=== PATIENT | male | born 1950 | race African-American/Black ===

== ENCOUNTER 2017-03-07 19:47 | Inpatient (IN) | payer BC, OTHER ==
[~2017-03-07] VITALS: Ht 185.4 cm; Wt 78.5 kg
[~2017-03-07 19:47] MED LIST: BACTRIM-DS1 EA PO; COMBIVENT2 PUFFS INH; HYDROCHLOROTHIA50 MG PO; LITHIUM CARBON300 MG PO; ONDANSETRON ODT4 MG ORAL; STRIBILD TABLE1 EACH PO; SYMBICORT 1601 PUFFS INH; ZESTRIL20 MG ORAL
[2017-03-07 21:03] LABS: EOSINOPHILS % (AUTO) 3.8 % (0.0-3.0); LYMPHOCYTES % (AUTO) 35.7 % (20.0-45.0); MEAN CORPUSCULAR HEMOGLOBIN 28.4 PG (27.0-31.0); MEAN CORPUSCULAR HGB CONC 31.5 G/DL (32.0-36.0); MEAN CORPUSCULAR VOLUME 90 FL (80-99); MEAN PLATELET VOLUME 8.7 FL (6.5-10.1); MONOCYTES % (AUTO) 8.9 % (1.0-10.0); NEUTROPHILS % (AUTO) 49.7 % (45.0-75.0); PLATELET COUNT 248 K/UL (150-450); RED BLOOD COUNT 4.78 M/UL (4.70-6.10); WHITE BLOOD COUNT 5.9 K/UL (4.8-10.8)
[2017-03-07 21:18] LABS: AMMONIA 24 umol/L (11-32)
[2017-03-07 21:26] VITALS: BP 110/72
[2017-03-07 21:31] LABS: ACETAMINOPHEN < 2 MCG/ML (10-30); ALCOHOL < 3 mg/dL
[2017-03-07 21:52] LABS: ANION GAP 6 mmol/L (5-15); CALCIUM 7.8 MG/DL (8.5-10.1); CARBON DIOXIDE 23 MMOL/L (21-32); CHLORIDE 108 MMOL/L (98-107); CREATININE 0.8 MG/DL (0.55-1.30); GLOMERULAR FILTRATION RATE > 60 mL/min (>60); POTASSIUM 4.2 MMOL/L (3.5-5.1); SODIUM 137 MMOL/L (136-145)
[2017-03-07 22:06] LABS: ALANINE AMINOTRANSFERASE 24 U/L (12-78); ALBUMIN/GLOBULIN RATIO 0.8 (1.0-2.7); ASPARTATE AMINO TRANSFERASE 44 U/L (15-37); CKMB 4.7 NG/ML (0.0-3.6); TOTAL PROTEIN 5.6 G/DL (6.4-8.2)
[2017-03-07] MEDS ORDERED: Albuterol/Ipratropium 3ml neb HHN PRN ×2 (22:15→22:45)
[2017-03-07] MEDS ORDERED: Mylanta II UD 30ml ORAL PRN (22:45)
[2017-03-07] MEDS ORDERED: Promethazine/Codeine 5ml UD ORAL PRN (22:45)
[2017-03-07] MEDS ORDERED: LORazepam Inj 2mg/ml 1ml IV PRN (22:45)
[2017-03-07] MEDS ORDERED: Miralax 17gm pkt ORAL PRN (22:45)
[2017-03-07] MEDS ORDERED: Nitroglycerin Subl 0.4mg tab SL PRN (22:45)
[2017-03-07] MEDS ORDERED: Morphine Sulfate 2mg/ml Inj IVP PRN (22:45)
--- NOTE | 2017-03-07 22:45 | Emergency Room Report ---
History of Present Illness General Chief Complaint: General Complaint Source: Patient Present Illness HPI 66-year-old presents to ED for evaluation. Patient states that his roommate asked him to come in. Roomate concerned that patient may have had a stroke. Patient states the last 3 days he is having increased slurred speech. Denies any facial droop. Denies any headache. Denies any chest pain shortness of breath. Patient does note psychiatric history he does take multiple medications. Denies alcohol or drug use. No other aggravating relieving factors. Denies any other associated symptoms Allergies: Coded Allergies: No Known Allergies (Unverified , 06/07/12) Patient History Past Medical History: COPD, psych hx, HIV Pertinent Family History: none Social History: Denies: smoking, alcohol use, drug use Immunizations: UTD Reviewed Nursing Documentation: PMH: Agreed, PSxH: Agreed Nursing Documentation-PMH Hx Hypertension: Yes - hiv History Of Psychiatric Problem: Yes - BIPOLAR Review of Systems All Other Systems: negative except mentioned in HPI Physical Exam Vital Signs Date Time Temp Pulse Resp B/P (MAP) Pulse Ox O2 Delivery O2 Flow Rate FiO2 03/07/17 19:57 98.1 69 18 119/65 100 Room Air Sp02 EP Interpretation: reviewed, normal General Appearance: no apparent distress, alert, GCS 15, non-toxic Head: normocephalic, atraumatic Eyes: bilateral eye normal inspection, bilateral eye PERRL ENT: hearing grossly normal, normal pharynx, no angioedema, normal voice Neck: full range of motion, supple/symm/no masses Respiratory: chest non-tender, lungs clear, normal breath sounds, speaking full sentences Cardiovascular #1: regular rate, rhythm, no edema Cardiovascular #2: 2+ carotid (R), 2+ carotid (L), 2+ radial (R), 2+ radial (L) , 2+ dorsalis pedis (R), 2+ dorsalis pedis (L) Gastrointestinal: normal bowel sounds, non tender, soft, non-distended, no guarding, no rebound Rectal: deferred Genitourinary: normal inspection, no CVA tenderness Musculoskeletal: back normal, gait/station normal, normal range of motion, non- tender Neurologic: alert, oriented x3, responsive, broadcast designer III-XII nml as tested, motor strength/tone normal, sensory intact, other - slurred speech Psychiatric: judgement/insight normal, memory normal, mood/affect normal, no suicidal/homicidal ideation Reflexes: 3+ bicep (R), 3+ bicep (L), 3+ tricep (R), 3+ tricep (L), 3+ knee (R) , 3+ knee (L) Skin: normal color, no rash, warm/dry, well hydrated Lymphatic: no adenopathy Medical Decision Making Diagnostic Impression: Primary Impression: Encephalopathy ER Course Hospital Course 66-year-old no presents ED with increased slurred speech x3 days Differential diagnoses include: OH/unstable angina, arrythmia, dehydration, CVA/ TIA Clinical course Patient placed on stretcher. on cardiac rehabilitation specialist. After initial history and physical I ordered labs, EKG, IVFs, CT Brain labs reviewed- no leukocytosis, hemoglobin/hematocrit ok, electrolytes okay, troponins negative, Utox +THC, lithium level is sendout EKG- NSR, no acute ischemic changes interpreted by me CT brain-unremarkable I spoke to PMD Dr. Sequeira; patient is not hypertension or other risk factors for stroke. However he has multiple reasons for toxic encephalopathy including substance abuse. Patient also takes lithium He agrees to admission. requests we admits to Dr. Rose Case discussed with Dr. Rose and he agreed to accept the patient to his service for further care and support I. I feel this is a highly complex case requiring extensive working including EKG/Rhythm strip, Xray/CT/US, Blood/urine lab work, repeat exams while in ED, and administration of strong opiates/narcotics for pain control, admission to hospital or close patient follow up. Diagnosis - encepalopathy admitted to floor in serious condition Labs Test 03/07/17 20:45 03/07/17 20:55 03/07/17 21:30 White Blood Count 5.9 K/UL (4.8-10.8) Red Blood Count 4.78 M/UL (4.70-6.10) Hemoglobin 13.6 G/DL (14.2-18.0) Hematocrit 43.0 % (42.0-52.0) Mean Corpuscular Volume 90 FL (80-99) Mean Corpuscular Hemoglobin 28.4 PG (27.0-31.0) Mean Corpuscular Hemoglobin Concent 31.5 G/DL (32.0-36.0) Red Cell Distribution Width 14.0 % (11.6-14.8) Platelet Count 248 K/UL (150-450) Mean Platelet Volume 8.7 FL (6.5-10.1) Neutrophils (%) (Auto) 49.7 % (45.0-75.0) Lymphocytes (%) (Auto) 35.7 % (20.0-45.0) Monocytes (%) (Auto) 8.9 % (1.0-10.0) Eosinophils (%) (Auto) 3.8 % (0.0-3.0) Basophils (%) (Auto) 2.0 % (0.0-2.0) Ammonia 24 umol/L (11-32) Troponin I 0.000 ng/mL (0.000-0.056) Salicylates Level 3.3 ug/mL (2.8-20) Acetaminophen Level < 2 MCG/ML (10-30) Serum Alcohol < 3 mg/dL Urine Opiates Screen Negative (NEGATIVE) Urine Barbiturates Screen Negative (NEGATIVE) Phencyclidine (PCP) Screen Negative (NEGATIVE) Urine Amphetamines Screen Negative (NEGATIVE) Urine Benzodiazepines Screen Negative (NEGATIVE) Urine Cocaine Screen Negative (NEGATIVE) Urine Marijuana (THC) Screen Positive (NEGATIVE) Sodium Level 137 MMOL/L (136-145) Potassium Level 4.2 MMOL/L (3.5-5.1) Chloride Level 108 MMOL/L (98-107) Carbon Dioxide Level 23 MMOL/L (21-32) Anion Gap 6 mmol/L (5-15) Blood Urea Nitrogen 16 mg/dL (7-18) Creatinine 0.8 MG/DL (0.55-1.30) Estimat Glomerular Filtration Rate > 60 mL/min (>60) Glucose Level 75 MG/DL (74-106) Calcium Level 7.8 MG/DL (8.5-10.1) Total Bilirubin 0.3 MG/DL (0.2-1.0) Aspartate Amino Transf (AST/SGOT) 44 U/L (15-37) Alanine Aminotransferase (ALT/SGPT) 24 U/L (12-78) Alkaline Phosphatase 63 U/L (46-116) Total Creatine Kinase 427 U/L (26-308) Creatine Kinase MB 4.7 NG/ML (0.0-3.6) Creatine Kinase MB Relative Index 1.1 Total Protein 5.6 G/DL (6.4-8.2) Albumin 2.5 G/DL (3.4-5.0) Globulin 3.1 g/dL Albumin/Globulin Ratio 0.8 (1.0-2.7) EKG Diagnostic Results Rate: normal Rhythm: NSR ST Segments: no acute changes ASA given to the pt in ED: No Rhythm Strip Diag. Results EP Interpretation: yes Rhythm: NSR, no PVC's, no ectopy CT/MRI/US Diagnostic Results CT/MRI/US Diagnostic Results : Imaging Test Ordered: CT Head Impression no acute process Last Vital Signs Date Time Temp Pulse Resp B/P (MAP) Pulse Ox O2 Delivery O2 Flow Rate FiO2 03/07/17 21:26 98.1 20 110/72 100 Room Air 03/07/17 19:57 69 Status: unchanged Disposition: ADMITTED INPATIENT Condition: Serious Referrals: OSVLADO MAKI (PCP) KATELIN CEBALLOS M.D. Mar 07, 2017 22:45
[2017-03-07 22:48] VITALS: BP 116/102
[2017-03-07 23:25] VITALS: BP 129/96
[2017-03-08] MEDS ORDERED: D5 1/2NS 1,000 ML IV SCH (01:00)
[2017-03-08 04:00] VITALS: BP 119/73
[2017-03-08 05:44] LABS: EOSINOPHILS % (AUTO) 4.8 % (0.0-3.0); LYMPHOCYTES % (AUTO) 39.6 % (20.0-45.0); MEAN CORPUSCULAR HEMOGLOBIN 29.6 PG (27.0-31.0); MEAN CORPUSCULAR HGB CONC 32.7 G/DL (32.0-36.0); MEAN CORPUSCULAR VOLUME 90 FL (80-99); MEAN PLATELET VOLUME 8.2 FL (6.5-10.1); MONOCYTES % (AUTO) 11.5 % (1.0-10.0); NEUTROPHILS % (AUTO) 43.1 % (45.0-75.0); PLATELET COUNT 218 K/UL (150-450); RED BLOOD COUNT 4.22 M/UL (4.70-6.10); RED CELL DISTRIBUTION WIDTH 13.7 % (11.6-14.8); WHITE BLOOD COUNT 5.6 K/UL (4.8-10.8)
[2017-03-08 05:54] LABS: INR 0.9 (0.9-1.1); PROTHROMBIN TIME 9.7 SEC (9.30-11.50)
[2017-03-08 06:10] LABS: ALANINE AMINOTRANSFERASE 33 U/L (12-78); ALBUMIN/GLOBULIN RATIO 0.8 (1.0-2.7); ANION GAP 6 mmol/L (5-15); ASPARTATE AMINO TRANSFERASE 29 U/L (15-37); CARBON DIOXIDE 26 MMOL/L (21-32); CHLORIDE 102 MMOL/L (98-107); CHOLESTEROL 158 MG/DL (< 200); CHOLESTEROL/HDL RATIO 3.1 (3.3-4.4); CREATININE 1.2 MG/DL (0.55-1.30); GLOMERULAR FILTRATION RATE > 60 mL/min (>60); POTASSIUM 3.7 MMOL/L (3.5-5.1); SODIUM 134 MMOL/L (136-145); THYROID STIMULATING HORMONE 2.655 uiU/mL (0.358-3.740)
[2017-03-08 06:53] LABS: AMMONIA 34 umol/L (11-32)
[2017-03-08 08:00] VITALS: BP 122/74
[2017-03-08] MEDS: BuPROPion XL 150mg tab ORAL SCH (08:27)
[2017-03-08] MEDS: Lisinopril 20mg tab ORAL SCH (08:28)
[2017-03-08] MEDS: Heparin 5000 units/ml inj SUBQ SCH ×2 (08:31→21:03)
[2017-03-08] MEDS ORDERED: Lisinopril 20mg tab ORAL SCH (09:00)
--- NOTE | 2017-03-08 09:53 | Diagnostic Imaging Report ---
Indication: Altered mental status Technique: Continuous helical CT scanning of the head was performed without intravenous contrast material. Axial and coronal 5 mm sections were generated. Radiation dose was minimized using automated exposure control Dose: Total Dose Length Product - DLP [address] Dose Index - CTDIvol(s) 70.38 mGy. Comparison: none Findings: The ventricular system is normal in size and configuration. There is no shift of midline structures. No abnormal extra-axial fluid collections are noted. There is no evidence of intracerebral bleeding. No other abnormal high or low density areas are noted within the brain. Intact calvarium. Visualized orbits and sinuses are unremarkable Impression: Normal CT scan of the head without contrast material. This agrees with the preliminary interpretation provided overnight by [facility] teleradiology service. The CT scanner at [facility] is accredited by the [employer] and the scans are performed using protocols designed to limit radiation exposure to as low as reasonably achievable to attain images of sufficient resolution adequate for diagnostic evaluation.
[2017-03-08 12:00] VITALS: BP 120/78
--- NOTE | 2017-03-08 12:10 | Neurology Progress Note ---
Objective Physical Exam Last Vital Signs Date Time Temp Pulse Resp B/P (MAP) Pulse Ox O2 Delivery O2 Flow Rate FiO2 03/08/17 08:28 122/76 03/08/17 08:00 98.1 76 19 96 03/08/17 07:05 Room Air 21 Laboratory Tests Test 03/07/17 20:45 03/07/17 20:55 03/07/17 21:30 03/08/17 05:17 White Blood Count 5.9 K/UL (4.8-10.8) 5.6 K/UL (4.8-10.8) Red Blood Count 4.78 M/UL (4.70-6.10) 4.22 M/UL (4.70-6.10) L Hemoglobin 13.6 G/DL (14.2-18.0) L 12.5 G/DL (14.2-18.0) L Hematocrit 43.0 % (42.0-52.0) 38.1 % (42.0-52.0) L Mean Corpuscular Volume 90 FL (80-99) 90 FL (80-99) Mean Corpuscular Hemoglobin 28.4 PG (27.0-31.0) 29.6 PG (27.0-31.0) Mean Corpuscular Hemoglobin Concent 31.5 G/DL (32.0-36.0) L 32.7 G/DL (32.0-36.0) Red Cell Distribution Width 14.0 % (11.6-14.8) 13.7 % (11.6-14.8) Platelet Count 248 K/UL (150-450) 218 K/UL (150-450) Mean Platelet Volume 8.7 FL (6.5-10.1) 8.2 FL (6.5-10.1) Neutrophils (%) (Auto) 49.7 % (45.0-75.0) 43.1 % (45.0-75.0) L Lymphocytes (%) (Auto) 35.7 % (20.0-45.0) 39.6 % (20.0-45.0) Monocytes (%) (Auto) 8.9 % (1.0-10.0) 11.5 % (1.0-10.0) H Eosinophils (%) (Auto) 3.8 % (0.0-3.0) H 4.8 % (0.0-3.0) H Basophils (%) (Auto) 2.0 % (0.0-2.0) 1.0 % (0.0-2.0) Ammonia 24 umol/L (11-32) 34 umol/L (11-32) H Troponin I 0.000 ng/mL (0.000-0.056) Salicylates Level 3.3 ug/mL (2.8-20) Acetaminophen Level < 2 MCG/ML (10-30) L [place] Level 0.84 MMOL/L (1.00-1.20) Serum Alcohol < 3 mg/dL Urine Opiates Screen Negative (NEGATIVE) Urine Barbiturates Screen Negative (NEGATIVE) Phencyclidine (PCP) Screen Negative (NEGATIVE) Urine Amphetamines Screen Negative (NEGATIVE) Urine Benzodiazepines Screen Negative (NEGATIVE) Urine Cocaine Screen Negative (NEGATIVE) Urine Marijuana (THC) Screen Positive (NEGATIVE) H Sodium Level 137 MMOL/L (136-145) 134 MMOL/L (136-145) L Potassium Level 4.2 MMOL/L (3.5-5.1) 3.7 MMOL/L (3.5-5.1) Chloride Level 108 MMOL/L (98-107) H 102 MMOL/L (98-107) Carbon Dioxide Level 23 MMOL/L (21-32) 26 MMOL/L (21-32) Anion Gap 6 mmol/L (5-15) 6 mmol/L (5-15) Blood Urea Nitrogen 16 mg/dL (7-18) 18 mg/dL (7-18) Creatinine 0.8 MG/DL (0.55-1.30) 1.2 MG/DL (0.55-1.30) Estimat Glomerular Filtration Rate > 60 mL/min (>60) > 60 mL/min (>60) Glucose Level 75 MG/DL (74-106) 114 MG/DL (74-106) H Calcium Level 7.8 MG/DL (8.5-10.1) L 10.0 MG/DL (8.5-10.1) # Total Bilirubin 0.3 MG/DL (0.2-1.0) 0.2 MG/DL (0.2-1.0) Aspartate Amino Transf (AST/SGOT) 44 U/L (15-37) H 29 U/L (15-37) Alanine Aminotransferase (ALT/SGPT) 24 U/L (12-78) 33 U/L (12-78) Alkaline Phosphatase 63 U/L (46-116) 91 U/L (46-116) Total Creatine Kinase 427 U/L (26-308) H Creatine Kinase MB 4.7 NG/ML (0.0-3.6) H Creatine Kinase MB Relative Index 1.1 Total Protein 5.6 G/DL (6.4-8.2) L 7.0 G/DL (6.4-8.2) Albumin 2.5 G/DL (3.4-5.0) L 3.2 G/DL (3.4-5.0) L Globulin 3.1 g/dL 3.8 g/dL Albumin/Globulin Ratio 0.8 (1.0-2.7) L 0.8 (1.0-2.7) L Prothrombin Time 9.7 SEC (9.30-11.50) Prothromb Time International Ratio 0.9 (0.9-1.1) Activated Partial Thromboplast Time 30 SEC (23-33) Triglycerides Level 173 MG/DL (30-150) H Cholesterol Level 158 MG/DL (< 200) LDL Cholesterol 91 mg/dL (<100) HDL Cholesterol 51 MG/DL (40-60) Cholesterol/HDL Ratio 3.1 (3.3-4.4) L Thyroid Stimulating Hormone (TSH) 2.655 uiU/mL (0.358-3.740) Impression/Recommendations Recommendations # [id number] MANINDER MURILLO Mar 08, 2017 12:10
[2017-03-08] MEDS: Depakote 500mg tab ORAL SCH ×2 (13:09→21:00)
[2017-03-08] MEDS: D5 1/2NS 1,000 ML IV SCH (13:10)
--- NOTE | 2017-03-08 13:17 | Consultation ---
History of Present Illness General Date patient seen: Mar 08, 2017 Time patient seen: 12:30 Chief Complaint: General Complaint Referring physician: dr Rose Reason for Consultation: inpatient management Present Illness HPI 66-year-old male with psychiatric history, HIV status presented to ED for evaluation. Patient stated that his roommate asked him to come in. Roommate was concerned that patient may have had a stroke. Patient reported for the last 3 days increased slurred speech. No facial droop. Denied headache. Denied chest pain ,shortness of breath. takes multiple psych medications. Denied alcohol or drug use. Workup in ED revealed stable VS, labortaort work CT brain revealed no acute ischemic changes troponin negative ammonia WNL lithium level not detected urine tox screen + marijuana patient was admitted for further workup Allergies: Coded Allergies: No Known Allergies (Unverified , 06/07/12) Medication History Scheduled Albuterol/Ipratropium (Combivent), 2 PUFFS INH QID, (Reported) Budesonide/Formoterol Fumarate (Symbicort 160-4.5 Mcg Inhaler), 1 PUFFS INH BID, (Reported) Elvitegr/Cobicist/Emtric/Tenof (Stribild Tablet), 1 EACH PO DAILY, (Reported) Hydrochlorothiazide* (Hydrochlorothiazide*), 50 MG PO DAILY, (Reported) Lisinopril* (Zestril*), 40 MG ORAL DAILY, (Reported) [place] Carbonate* ([place]*), 300 MG PO Q8H, (Reported) Ondansetron Odt* (Zofran Odt*), 4 MG ORAL EVERY 8 HOURS Trimethoprim/Sulfamethoxazole (Bactrim Ds Tablet), 1 TAB PO DAILY, (Reported) Patient History History Provided By: Patient Healthcare decision maker Resuscitation status Advanced Directive on File No Past Medical/Surgical History Past Medical/Surgical History: (1) ETOH abuse (2) Psychiatric disorder (3) COPD (chronic obstructive pulmonary disease) (4) HIV disease (5) Hyperlipidemia (6) HTN (hypertension) Review of Systems Respiratory: Reports: other - COPD Psychiatric: Reports: other - psych disorder Hematologic/Lymphatic: Reports: other - HIV Physical Exam General Appearance: WD/WN, no apparent distress, alert Lines, tubes and drains: peripheral HEENT: normocephalic, atraumatic, anicteric, mucous membranes moist Neck: non-tender, supple Respiratory/Chest: chest wall non-tender, lungs clear, no respiratory distress , no accessory muscle use Cardiovascular/Chest: normal rate, regular rhythm, no JVD Abdomen: normal bowel sounds, non tender, soft Extremities: normal range of motion, non-tender, no calf tenderness Skin Exam: normal pigmentation, warm/dry Neurologic: sole painter II-XII grossly normal, alert, responsive Musculoskeletal: normal muscle bulk Last 24 Hour Vital Signs Date Time Temp Pulse Resp B/P (MAP) Pulse Ox O2 Delivery O2 Flow Rate FiO2 03/08/17 12:00 98.2 71 19 120/78 100 03/08/17 08:28 122/76 03/08/17 08:00 98.1 76 19 122/74 96 03/08/17 07:05 96 18 Room Air 21 03/08/17 04:00 97.4 74 18 119/73 99 Room Air 03/07/17 23:25 98.4 78 19 129/96 100 03/07/17 23:15 75 20 116/102 100 Room Air 03/07/17 22:48 20 116/102 100 Room Air 03/07/17 21:26 98.1 20 110/72 100 Room Air 03/07/17 19:57 98.1 69 18 119/65 100 Room Air Intake and Output 03/08/17 03/09/17 19:00 07:00 Intake Total 240 ml Balance 240 ml Intake Oral 240 ml # Voids 1 Laboratory Tests Test 03/07/17 20:45 03/07/17 20:55 03/07/17 21:30 03/08/17 05:17 White Blood Count 5.9 K/UL (4.8-10.8) 5.6 K/UL (4.8-10.8) Red Blood Count 4.78 M/UL (4.70-6.10) 4.22 M/UL (4.70-6.10) L Hemoglobin 13.6 G/DL (14.2-18.0) L 12.5 G/DL (14.2-18.0) L Hematocrit 43.0 % (42.0-52.0) 38.1 % (42.0-52.0) L Mean Corpuscular Volume 90 FL (80-99) 90 FL (80-99) Mean Corpuscular Hemoglobin 28.4 PG (27.0-31.0) 29.6 PG (27.0-31.0) Mean Corpuscular Hemoglobin Concent 31.5 G/DL (32.0-36.0) L 32.7 G/DL (32.0-36.0) Red Cell Distribution Width 14.0 % (11.6-14.8) 13.7 % (11.6-14.8) Platelet Count 248 K/UL (150-450) 218 K/UL (150-450) Mean Platelet Volume 8.7 FL (6.5-10.1) 8.2 FL (6.5-10.1) Neutrophils (%) (Auto) 49.7 % (45.0-75.0) 43.1 % (45.0-75.0) L Lymphocytes (%) (Auto) 35.7 % (20.0-45.0) 39.6 % (20.0-45.0) Monocytes (%) (Auto) 8.9 % (1.0-10.0) 11.5 % (1.0-10.0) H Eosinophils (%) (Auto) 3.8 % (0.0-3.0) H 4.8 % (0.0-3.0) H Basophils (%) (Auto) 2.0 % (0.0-2.0) 1.0 % (0.0-2.0) Ammonia 24 umol/L (11-32) 34 umol/L (11-32) H Troponin I 0.000 ng/mL (0.000-0.056) Salicylates Level 3.3 ug/mL (2.8-20) Acetaminophen Level < 2 MCG/ML (10-30) L [place] Level 0.84 MMOL/L (1.00-1.20) Serum Alcohol < 3 mg/dL Urine Opiates Screen Negative (NEGATIVE) Urine Barbiturates Screen Negative (NEGATIVE) Phencyclidine (PCP) Screen Negative (NEGATIVE) Urine Amphetamines Screen Negative (NEGATIVE) Urine Benzodiazepines Screen Negative (NEGATIVE) Urine Cocaine Screen Negative (NEGATIVE) Urine Marijuana (THC) Screen Positive (NEGATIVE) H Sodium Level 137 MMOL/L (136-145) 134 MMOL/L (136-145) L Potassium Level 4.2 MMOL/L (3.5-5.1) 3.7 MMOL/L (3.5-5.1) Chloride Level 108 MMOL/L (98-107) H 102 MMOL/L (98-107) Carbon Dioxide Level 23 MMOL/L (21-32) 26 MMOL/L (21-32) Anion Gap 6 mmol/L (5-15) 6 mmol/L (5-15) Blood Urea Nitrogen 16 mg/dL (7-18) 18 mg/dL (7-18) Creatinine 0.8 MG/DL (0.55-1.30) 1.2 MG/DL (0.55-1.30) Estimat Glomerular Filtration Rate > 60 mL/min (>60) > 60 mL/min (>60) Glucose Level 75 MG/DL (74-106) 114 MG/DL (74-106) H Calcium Level 7.8 MG/DL (8.5-10.1) L 10.0 MG/DL (8.5-10.1) # Total Bilirubin 0.3 MG/DL (0.2-1.0) 0.2 MG/DL (0.2-1.0) Aspartate Amino Transf (AST/SGOT) 44 U/L (15-37) H 29 U/L (15-37) Alanine Aminotransferase (ALT/SGPT) 24 U/L (12-78) 33 U/L (12-78) Alkaline Phosphatase 63 U/L (46-116) 91 U/L (46-116) Total Creatine Kinase 427 U/L (26-308) H Creatine Kinase MB 4.7 NG/ML (0.0-3.6) H Creatine Kinase MB Relative Index 1.1 Total Protein 5.6 G/DL (6.4-8.2) L 7.0 G/DL (6.4-8.2) Albumin 2.5 G/DL (3.4-5.0) L 3.2 G/DL (3.4-5.0) L Globulin 3.1 g/dL 3.8 g/dL Albumin/Globulin Ratio 0.8 (1.0-2.7) L 0.8 (1.0-2.7) L Prothrombin Time 9.7 SEC (9.30-11.50) Prothromb Time International Ratio 0.9 (0.9-1.1) Activated Partial Thromboplast Time 30 SEC (23-33) Triglycerides Level 173 MG/DL (30-150) H Cholesterol Level 158 MG/DL (< 200) LDL Cholesterol 91 mg/dL (<100) HDL Cholesterol 51 MG/DL (40-60) Cholesterol/HDL Ratio 3.1 (3.3-4.4) L Thyroid Stimulating Hormone (TSH) 2.655 uiU/mL (0.358-3.740) Height (Feet): 6 Height (Inches): 1.00 Weight (Pounds): 173 Medications Current Medications Medications (Trade) Dose Ordered Sig/Michael Route PRN Reason Start Time Stop Time Status Last Admin Dose Admin Acetaminophen (Tylenol) 650 mg Q4H PRN ORAL fever 03/07/17 22:45 04/06/17 22:44 Al Hydroxide/Mg Hydroxide (Mylanta II) 30 ml Q6H PRN ORAL dyspepsia 03/07/17 22:45 04/06/17 22:44 Albuterol/ Ipratropium (Albuterol/ Ipratropium) 3 ml Q4H PRN HHN Shortness of Breath 03/07/17 22:45 03/12/17 22:44 Bupropion HCl (Wellbutrin XL) 150 mg DAILY ORAL 03/08/17 09:00 04/07/17 08:59 03/08/17 08:27 Clonidine HCl (Catapres) 0.1 mg Q4H PRN ORAL For High Blood Pressure 03/07/17 22:45 04/06/17 22:44 Dextrose (Dextrose 50%) STAT PRN IV Hypoglycemia 03/07/17 22:45 04/06/17 22:44 Dextrose/Sodium Chloride 1,000 ml @ 50 mls/hr Q20H IV 03/08/17 13:15 04/07/17 00:59 03/08/17 13:10 Divalproex Sodium (Depakote) 500 mg EVERY 12 HOURS ORAL 03/08/17 12:30 04/07/17 12:29 03/08/17 13:09 Folic Acid 1 mg/ Magnesium Sulfate 2000 mg/ Multivitamins 10 ml/Sodium Chloride 1,014.2 ml @ 125 mls/ hr Q24H IV 03/08/17 14:00 04/07/17 13:59 Heparin Sodium (Porcine) (Heparin 5000 units/ml) 5,000 units EVERY 12 HOURS SUBQ 03/08/17 09:00 04/07/17 08:59 03/08/17 08:31 Hydrochlorothiazide (Hydrodiuril) 50 mg DAILY ORAL 03/08/17 09:00 04/07/17 08:59 03/08/17 08:27 Lisinopril (Prinivil) 40 mg DAILY ORAL 03/08/17 09:00 04/07/17 08:59 03/08/17 08:28 [place] Carbonate ([place] Carbonate) 300 mg Q8HR ORAL 03/08/17 14:00 04/07/17 13:59 Lorazepam (Ativan 2mg/ml 1ml) 0.5 mg Q4H PRN IV For Anxiety 03/07/17 22:45 03/14/17 22:44 Morphine Sulfate (Morphine Sulfate) 1 mg Q4H PRN IVP For Pain 7-10 03/07/17 22:45 03/14/17 22:44 Nitroglycerin (Ntg) 0.4 mg Q5M X 3 DOSES PRN SL Prn Chest Pain 03/07/17 22:45 04/06/17 22:44 Ondansetron HCl (Zofran) 4 mg Q6H PRN IVP Nausea & Vomiting 03/07/17 22:45 04/06/17 22:44 Patient Own Medication (Patient's Own Med) 1 ea DAILY ORAL 03/08/17 09:00 04/07/17 08:59 UNV Polyethylene Glycol (Miralax) 17 gm HSPRN PRN ORAL Constipation 03/07/17 22:45 04/06/17 22:44 Promethazine HCl/ Codeine (Phenergan with Codeine) 5 ml Q4H PRN ORAL For Cough 03/07/17 22:45 04/06/17 22:44 Temazepam (Restoril) 15 mg HSPRN PRN ORAL Insomnia 03/07/17 22:45 03/14/17 22:44 Thiamine HCl 100 mg/Dextrose 56 ml @ 112 mls/hr Q24H IVPB 03/08/17 14:00 04/07/17 13:59 Assessment/Plan Assessment/Plan ASSESSMENT acute toxic metabolic encephalopathy-resolved HIV status ( with preserved CD4 counts) COPD psych disorder , likely bipolar HTN Hyperlipidemia marijuana user PLAN OF CARE MS floor gentle IV hydration neuro eval appreciated CT head negative for any acute IC pathology MRI brain negative Carotid Duplex Venous Duplex tox screen + marijuana O2 HHN prn lithium level not detectable BP management with current regimen and optimize as needed DVT prophylaxis Pain management Bowel regimen PT/OT/ST per his PMD patient with well controlled HIV disease with preserved CD4 count patient smoked marijuana and later developed symptoms, that stopped case discussed and evaluated by supervising physician Cosmo Riddle),Evon HAHN Mar 08, 2017 13:17
--- NOTE | 2017-03-08 13:42 | Consultation ---
Consult Note Consult Note Pt seen and examined. Pt followed by me for well-controlled HIV infection and preserved CD4 cells. He had transient episode of confusion and slurred speech last night on way to a movie. He had smoked some marijuana earlier. He feels well at this time and wants to go home. ROS: denies fever, DASILVA, cough, chest pain, SOB, abdominal pain, nausea, vomiting , diarrhea, dysuria. PE: WNWD male NAD. Alert, oriented x 4 HEENT: nc/at Lungs: clear Cor: reg Abd: soft Ext no c/c/e Neuro: no focal deficits. MS seems intact. Labs Test 03/07/17 20:45 03/07/17 20:55 03/07/17 21:30 03/08/17 05:17 White Blood Count 5.9 K/UL (4.8-10.8) 5.6 K/UL (4.8-10.8) Red Blood Count 4.78 M/UL (4.70-6.10) 4.22 M/UL (4.70-6.10) Hemoglobin 13.6 G/DL (14.2-18.0) 12.5 G/DL (14.2-18.0) Hematocrit 43.0 % (42.0-52.0) 38.1 % (42.0-52.0) Mean Corpuscular Volume 90 FL (80-99) 90 FL (80-99) Mean Corpuscular Hemoglobin 28.4 PG (27.0-31.0) 29.6 PG (27.0-31.0) Mean Corpuscular Hemoglobin Concent 31.5 G/DL (32.0-36.0) 32.7 G/DL (32.0-36.0) Red Cell Distribution Width 14.0 % (11.6-14.8) 13.7 % (11.6-14.8) Platelet Count 248 K/UL (150-450) 218 K/UL (150-450) Mean Platelet Volume 8.7 FL (6.5-10.1) 8.2 FL (6.5-10.1) Neutrophils (%) (Auto) 49.7 % (45.0-75.0) 43.1 % (45.0-75.0) Lymphocytes (%) (Auto) 35.7 % (20.0-45.0) 39.6 % (20.0-45.0) Monocytes (%) (Auto) 8.9 % (1.0-10.0) 11.5 % (1.0-10.0) Eosinophils (%) (Auto) 3.8 % (0.0-3.0) 4.8 % (0.0-3.0) Basophils (%) (Auto) 2.0 % (0.0-2.0) 1.0 % (0.0-2.0) Ammonia 24 umol/L (11-32) 34 umol/L (11-32) Troponin I 0.000 ng/mL (0.000-0.056) Salicylates Level 3.3 ug/mL (2.8-20) Acetaminophen Level < 2 MCG/ML (10-30) [place] Level 0.84 MMOL/L (1.00-1.20) Serum Alcohol < 3 mg/dL Urine Opiates Screen Negative (NEGATIVE) Urine Barbiturates Screen Negative (NEGATIVE) Phencyclidine (PCP) Screen Negative (NEGATIVE) Urine Amphetamines Screen Negative (NEGATIVE) Urine Benzodiazepines Screen Negative (NEGATIVE) Urine Cocaine Screen Negative (NEGATIVE) Urine Marijuana (THC) Screen Positive (NEGATIVE) Sodium Level 137 MMOL/L (136-145) 134 MMOL/L (136-145) Potassium Level 4.2 MMOL/L (3.5-5.1) 3.7 MMOL/L (3.5-5.1) Chloride Level 108 MMOL/L (98-107) 102 MMOL/L (98-107) Carbon Dioxide Level 23 MMOL/L (21-32) 26 MMOL/L (21-32) Anion Gap 6 mmol/L (5-15) 6 mmol/L (5-15) Blood Urea Nitrogen 16 mg/dL (7-18) 18 mg/dL (7-18) Creatinine 0.8 MG/DL (0.55-1.30) 1.2 MG/DL (0.55-1.30) Estimat Glomerular Filtration Rate > 60 mL/min (>60) > 60 mL/min (>60) Glucose Level 75 MG/DL (74-106) 114 MG/DL (74-106) Calcium Level 7.8 MG/DL (8.5-10.1) 10.0 MG/DL (8.5-10.1) Total Bilirubin 0.3 MG/DL (0.2-1.0) 0.2 MG/DL (0.2-1.0) Aspartate Amino Transf (AST/SGOT) 44 U/L (15-37) 29 U/L (15-37) Alanine Aminotransferase (ALT/SGPT) 24 U/L (12-78) 33 U/L (12-78) Alkaline Phosphatase 63 U/L (46-116) 91 U/L (46-116) Total Creatine Kinase 427 U/L (26-308) Creatine Kinase MB 4.7 NG/ML (0.0-3.6) Creatine Kinase MB Relative Index 1.1 Total Protein 5.6 G/DL (6.4-8.2) 7.0 G/DL (6.4-8.2) Albumin 2.5 G/DL (3.4-5.0) 3.2 G/DL (3.4-5.0) Globulin 3.1 g/dL 3.8 g/dL Albumin/Globulin Ratio 0.8 (1.0-2.7) 0.8 (1.0-2.7) Prothrombin Time 9.7 SEC (9.30-11.50) Prothromb Time International Ratio 0.9 (0.9-1.1) Activated Partial Thromboplast Time 30 SEC (23-33) Triglycerides Level 173 MG/DL (30-150) Cholesterol Level 158 MG/DL (< 200) LDL Cholesterol 91 mg/dL (<100) HDL Cholesterol 51 MG/DL (40-60) Cholesterol/HDL Ratio 3.1 (3.3-4.4) Thyroid Stimulating Hormone (TSH) 2.655 uiU/mL (0.358-3.740) Assessment/Plan A: transient altered mental status, ? due to marijuana vs new [employer] SUPER[employer] event. Latter seems unlikely with normal CT scan. HIV-well controlled COPD/bronchospasm hypertension hyperlipidemia hx Rec: pt can continue his Gen[employer] from home. Await neuro eval. Dr. Rose and Fernanda's help much appreciated. OSVALDO MAKI Mar 08, 2017 13:42
[2017-03-08] MEDS: Thiamine 100mg IVPB (Q24H) IVPB SCH ×2 (15:05)
[2017-03-08] MEDS: Folic Acid 1 MG, Magnesium Sulfate 2,000 MG, Multivitamin - 12 Injection 10 ML in NS w/... IV SCH (15:12)
[2017-03-08 16:00] VITALS: BP 123/77
--- NOTE | 2017-03-08 16:04 | Diagnostic Imaging Report ---
Indication: Slurred speech and altered mental status Technique: sagittal T1 fast spin echo, axial T1 FLAIR, axial T2 FLAIR, axial T2 FS PROPELLER, axial T2* GRE, axial diffusion weighted images. ADC and exponential ADC maps generated Comparison: Brain CT 03/07/2017 Findings: No abnormal areas of restricted diffusion to suggest acute infarction. No acute hemorrhage or edema. No mass effect nor midline shift. Normal size, for age, ventricles and extra axial CSF spaces. Visualized orbits and sinuses are unremarkable. Vascular flow voids are preserved Impression: Negative
[2017-03-08] MEDS: Dolutegravir Sodium 50mg tab ORAL SCH (16:35)
--- NOTE | 2017-03-08 19:08 | History & Physical ---
History and Physical History & Physicial Dictated for Int Med-Dr Rose no. [id number]. ALIZA MORSE Mar 08, 2017 19:08
[2017-03-08 20:00] VITALS: BP 120/74
--- NOTE | 2017-03-08 21:15 | History and Physical Report ---
DATE OF ADMISSION: 03/07/2017 CHIEF COMPLAINT: The patient is a 66-year-old male, presents with chief complaint of confusion, slurred speech and dizziness for one week. HISTORY OF PRESENT ILLNESS: Began one week prior to admission. The patient began to experience confusion. The patient was unable to recall certain events or names. The patient also has some slurred speech. The patient was dizzy. The patient states he was on steady on his feet. The room did not been spin. The patient's partner became concerned Saturday evening, 03/07/2017 while they were on the way to the movie. The patient's symptoms had gotten worse. The patient presented to [place] emergency room. The patient was admitted for confusion, slurred speech and vertigo to rule out acute cerebrovascular accident versus transient ischemic attack. PAST MEDICAL HISTORY: Significant for 1. HIV, which was diagnosed in 1983 followed as an outpatient by Dr. Jorge Delgadillo. 2. Hypertension. 3. Bipolar depression. 4. Chronic obstructive pulmonary disease. PAST SURGICAL HISTORY: Significant for 1. 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 2. Sacral prosthesis placed at age 18. 3. Exploratory laparotomy for abdominal abscess. CURRENT MEDICATIONS: 1. Combivent two puffs p.o. q.i.d. p.r.n. 2. Symbicort 160/4.5 one puff p.o. twice daily. 3. Stribild one tablet p.o. daily. 4. Hydrochlorothiazide 50 mg p.o. daily. 5. Lisinopril 40 mg p.o. daily. 6. Bennett 300 mg p.o. q.8 h. 7. Zofran 4 mg p.o. q.8 h. 8. Bactrim double-strength one tablet p.o. daily. ALLERGIES: No known drug allergies. 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 The patient admits to tobacco use one pack per day. The patient admits to alcohol use of two drinks daily. REVIEW OF SYSTEMS: CONSTITUTIONAL: The patient denies weight loss or weight gain. The patient denies fevers or chills. HEENT: The patient denies ear or throat pain. The patient denies headache. CARDIOVASCULAR: The patient denies palpitations or chest pain. CHEST: The patient denies wheeze or shortness of breath. ABDOMEN: The patient denies nausea, vomiting, diarrhea, or constipation. GENITOURINARY: The patient denies dysuria or increased frequency of urination. NEUROMUSCULAR: The patient complains of confusion, slurred speech and dizziness as above. The patient denies seizures or generalized weakness. PHYSICAL EXAMINATION: GENERAL: The patient is well developed and well nourished, thin-appearing male, in no apparent distress. VITAL SIGNS: Temperature 97.4 degrees, respirations 18, pulse 74, and blood pressure 119/73. HEENT: Eyes, pupils equal responsive to light and accommodation. Extraocular movements are intact. NECK: Supple without lymphadenopathy. CHEST: Lungs are clear to auscultation bilaterally without wheezes or rales. CARDIOVASCULAR: Regular rate. S1 and S2 normal without murmurs, rubs, or gallops. ABDOMEN: Soft, nontender, and nondistended. Positive bowel sounds. No evidence of hepatosplenomegaly. Currently, no rebound or guarding noted. EXTREMITIES: Negative for clubbing, cyanosis, or edema. RECTAL/GENITAL: Refused. NEUROLOGIC: Cranial nerves II through XII are grossly intact without focal deficits. Motor strength is 5/5 bilaterally. Deep tendon reflexes are 2+ plantar. LABORATORY AND DIAGNOSTIC DATA: WBC 5.9, hemoglobin 13.6, hematocrit 43.0, and platelets 248,000. Sodium 137, potassium 4.2, chloride 108, CO2 23, BUN 16, creatinine 0.8 and glucose 75. Troponin 0.0. Liver function tests within normal limits. A CT scan of the brain was reported as normal. ASSESSMENT: This is a 66-year-old male 1. Altered mental status. 2. Slurred speech. 3. Vertigo. 4. Human immunodeficiency virus. 5. Hypertension. 6. Chronic obstructive pulmonary disease. 7. Bipolar depression. TREATMENT: 1. Altered mental status/slurred speech/vertigo. A Neurology consultation has been obtained with Dr. Michael. An MRI of the brain is pending. We will follow recommendations of Dr. Michael. 2. Human immunodeficiency virus. The patient is followed as an outpatient by Dr. Jorge Delgadillo. Continue Stribild as above. 3. Hypertension. Continue lisinopril and hydrochlorothiazide as above. 4. Chronic obstructive pulmonary disease. Continue Symbicort and Combivent as above. 5. Bipolar depression. Continue lithium as above. Rayshawn Lim M.D. DR: SILVIA JOB#: [id number] CC:
--- NOTE | 2017-03-08 21:45 | Consultation ---
DATE OF CONSULTATION: 03/08/2017 NEUROLOGICAL CONSULTATION CONSULTING PHYSICIAN: Sandip Michael M.D. REQUESTING PHYSICIAN: Anthony Rose M.D. HISTORY OF PRESENT ILLNESS: This is a 66-year-old gentleman, seen in neurological consultation to evaluate new onset of intermittent episodes of . The patient is brought to the emergency room after his roommate asked him to come in being afraid that he might have a stroke. He reported that for the last three days, he was having increased slurriness of speech, but no other associated symptomatology. The patient now clarifies stating that approximately week ago, he started to develop at least three or four amnestic episodes during which he had slurred speech as he was told by his friends who were witnessing. During episode, he is able to speak and move around. At times, he feels "weird," but mostly he has no recollection of event, which may last up to one hour. During episode, he was described having bilateral hand shaking. There was no urine or bowel incontinence. No tongue biting. The patient suggested that he might not even know if he had such episodes, if that would be not observed by someone else. The patient recalled that few months ago he started to develop intermittent tremors of his upper extremities. He was seen by outside neurologist. His EEG and some radiological studies were obtained. He is unaware of results, but obviously no treatment was recommended. During current admission, his vital signs were stable. He is afebrile. He had a CT scan of the brain done that was negative. Laboratory work included unremarkable CBC studies with mild anemia, hemoglobin 12.5 and hematocrit 38.1. Normal coagulation panel. Toxicology panel, positive for marijuana less than 0.84, alcohol of 3. His chemistry panel remarkable for elevated CPK of 427, CK-MB 4.7, total protein was low 5.6 with albumin 2.5, but normal TSH, normal lipid panel, and ammonia level of 34. Elevation of calcium 10.0. Since admission till present, there was no paroxysmal event. PAST MEDICAL HISTORY: History of positive HIV, history of hypertension, and COPD. MEDICATIONS: His treatment include Bactrim, Zofran, lithium for bipolar disorder, hydrochlorothiazide, antiviral agents, and albuterol inhaler. ALLERGIES: None reported. SOCIAL HISTORY: Single. Smokes marijuana regularly. In addition, he drinks one pint of whiskey daily for at least last year. No withdrawal seizures described. FAMILY HISTORY: Noncontributory. REVIEW OF SYMPTOMS: The patient indicated currently he is feeling fairly well. He has no headache. No dizziness. No chest pain. No palpitations. No respiratory problems. No abdominal pain or discomfort, but concerned with intermittent tremors of his all four extremities. PHYSICAL EXAMINATION: GENERAL: A well-developed, well-nourished, pleasant man, not in acute distress. VITAL SIGNS: His vital signs are stable. He is afebrile. Blood pressure was 122/76. HEENT: Head is normocephalic. No evidence of trauma. Eyes, ears, and throat are clear. NECK: Supple. No meningeal signs. MUSCULOSKELETAL: Unremarkable. There is no deformities. Peripheral pulses 1+ symmetric. MENTAL STATUS: He is alert and oriented x3 with no evidence of aphasia or apraxia. Cognitive function normal. CRANIAL NERVE II: Pupils both responding to light and accommodation. Extraocular movement intact. No nystagmus. CRANIAL NERVE V: Normal corneal responses. CRANIAL NERVE VII: No facial asymmetry. CRANIAL NERVE VIII: Normal hearing. CRANIAL NERVES IX THROUGH XII: Within normal limits. MOTOR EXAMINATION: Motor examination revealed normal muscle tone. Strength 5/5 in all extremities. No involuntary movement. Deep tendon reflexes 1+ symmetric with downgoing toes on both sides. Sensory exam normal to pinprick and light touch. Gait is stable. Mildly positive Romberg test. IMPRESSION: 1. New onset of intermittent amnestic episodes resembling a partial complex seizure activity. 2. Bipolar disorder. 3. Hypertension. 4. Alcohol abuse. 5. Chronic obstructive pulmonary disease. 6. Positive human immunodeficiency virus. RECOMMENDATION: 1. Encephalogram. 2. MRI of the brain with and without contrast. 3. Consider starting anticonvulsants. Depakote 500 mg, which may require monitoring of liver function. This is more important in the setting of alcohol abuse. 4. The patient was explained that alcohol may threshold. 5. At this point, the patient recommended not to drive and daily to be notified. 6. Start on thiamine. Watch for possible alcohol withdrawal. Thank you for allowing me to see this interesting patient in neurological consultation. Sandip Michael M.D. DR: Pily JOB#: [id number] CC: Jorge Delgadillo M.D.; Fax#: [phone]
[2017-03-09] VITALS: BP 109/69
[2017-03-09 04:00] VITALS: BP 121/80
[2017-03-09 08:00] VITALS: BP 134/63
[2017-03-09 08:08] LABS: BASOPHILS % (AUTO) 1.2 % (0.0-2.0); EOSINOPHILS % (AUTO) 3.4 % (0.0-3.0); LYMPHOCYTES % (AUTO) 48.7 % (20.0-45.0); MEAN CORPUSCULAR HEMOGLOBIN 29.1 PG (27.0-31.0); MEAN CORPUSCULAR HGB CONC 31.6 G/DL (32.0-36.0); MEAN CORPUSCULAR VOLUME 92 FL (80-99); MEAN PLATELET VOLUME 7.6 FL (6.5-10.1); MONOCYTES % (AUTO) 9.3 % (1.0-10.0); NEUTROPHILS % (AUTO) 37.4 % (45.0-75.0); PLATELET COUNT 242 K/UL (150-450); RED CELL DISTRIBUTION WIDTH 14.2 % (11.6-14.8); WHITE BLOOD COUNT 5.7 K/UL (4.8-10.8)
[2017-03-09 08:24] LABS: ANION GAP 7 mmol/L (5-15); CALCIUM 10.5 MG/DL (8.5-10.1); CARBON DIOXIDE 28 MMOL/L (21-32); CHLORIDE 104 MMOL/L (98-107); CREATININE 1.3 MG/DL (0.55-1.30); GLOMERULAR FILTRATION RATE > 60 mL/min (>60); POTASSIUM 5.3 MMOL/L (3.5-5.1); SODIUM 139 MMOL/L (136-145)
[2017-03-09] MEDS: BuPROPion XL 150mg tab ORAL SCH (08:57)
[2017-03-09] MEDS: Depakote 500mg tab ORAL SCH ×2 (08:57→20:48)
[2017-03-09] MEDS: Dolutegravir Sodium 50mg tab ORAL SCH (08:57)
[2017-03-09] MEDS: Lisinopril 20mg tab ORAL SCH (08:57)
[2017-03-09] MEDS: Heparin 5000 units/ml inj SUBQ SCH ×2 (08:59→20:50)
[2017-03-09] MEDS: D5 1/2NS 1,000 ML IV SCH (09:00)
--- NOTE | 2017-03-09 10:09 | Pulmonology Progress Note ---
Assessment/Plan Assessment/Plan ASSESSMENT acute toxic metabolic encephalopathy-resolved HIV status ( with preserved CD4 counts) COPD psych disorder , likely bipolar HTN Hyperlipidemia marijuana user PLAN OF CARE MS floor gentle IV hydration neuro eval appreciated CT head negative for any acute IC pathology MRI brain negative Carotid Duplex Venous Duplex tox screen + marijuana O2 HHN prn lithium level not detectable BP management with current regimen and optimize as needed DVT prophylaxis Pain management Bowel regimen PT/OT/ST per his PMD patient with well controlled HIV disease with preserved CD4 count patient smoked marijuana and later developed symptoms, that stopped probably can be dc home, BP stable, mental status stable case discussed and evaluated by supervising physician Subjective Allergies: Coded Allergies: No Known Allergies (Unverified , 06/07/12) Subjective mental status stable denies CP, SOB, palpitations, dizziness, DASILVA Objective Last 24 Hour Vital Signs Date Time Temp Pulse Resp B/P (MAP) Pulse Ox O2 Delivery O2 Flow Rate FiO2 03/09/17 08:57 134/63 03/09/17 08:00 98.2 80 18 134/63 95 Room Air 03/09/17 04:00 98.5 78 18 121/80 99 Room Air 03/09/17 00:00 97.8 18 18 109/69 98 Room Air 03/08/17 20:00 97.6 71 18 120/74 99 Room Air 03/08/17 19:00 70 18 Room Air 21 03/08/17 16:00 98.4 68 19 123/77 98 03/08/17 12:00 98.2 71 19 120/78 100 Intake and Output 03/09/17 03/10/17 19:00 07:00 Intake Total 240 ml Output Total 240 ml Balance 0 ml Intake Oral 240 ml Output Urine Total 240 ml Objective General Appearance: WD/WN, no apparent distress, alert Lines, tubes and drains: peripheral HEENT: normocephalic, atraumatic, anicteric, mucous membranes moist Neck: non-tender, supple Respiratory/Chest: chest wall non-tender, lungs clear, no respiratory distress , no accessory muscle use Cardiovascular/Chest: normal rate, regular rhythm, no JVD Abdomen: normal bowel sounds, non tender, soft Extremities: normal range of motion, non-tender, no calf tenderness Skin Exam: normal pigmentation, warm/dry 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, alert, responsive Musculoskeletal: normal muscle bulk Laboratory Tests 03/09/17 04:30: White Blood Count 5.7, Red Blood Count 4.50L, Hemoglobin 13.1L, Hematocrit 41.4L , Mean Corpuscular Volume 92, Mean Corpuscular Hemoglobin 29.1, Mean Corpuscular Hemoglobin Concent 31.6L, Red Cell Distribution Width 14.2, Platelet Count 242, Mean Platelet Volume 7.6, Neutrophils (%) (Auto) 37.4L, Lymphocytes (%) (Auto) 48.7H, Monocytes (%) (Auto) 9.3, Eosinophils (%) (Auto) 3.4H, Basophils (%) (Auto) 1.2, Sodium Level 139, Potassium Level 5.3H, Chloride Level 104, Carbon Dioxide Level 28, Anion Gap 7, Blood Urea Nitrogen 16 , Creatinine 1.3, Estimat Glomerular Filtration Rate > 60, Glucose Level 92, Calcium Level 10.5H Current Medications Medications (Trade) Dose Ordered Sig/Michael Route PRN Reason Start Time Stop Time Status Last Admin Dose Admin Acetaminophen (Tylenol) 650 mg Q4H PRN ORAL fever 03/07/17 22:45 04/06/17 22:44 Al Hydroxide/Mg Hydroxide (Mylanta II) 30 ml Q6H PRN ORAL dyspepsia 03/07/17 22:45 04/06/17 22:44 Albuterol/ Ipratropium (Albuterol/ Ipratropium) 3 ml Q4H PRN HHN Shortness of Breath 03/07/17 22:45 03/12/17 22:44 Bupropion HCl (Wellbutrin XL) 150 mg DAILY ORAL 03/08/17 09:00 04/07/17 08:59 03/09/17 08:57 Clonidine HCl (Catapres) 0.1 mg Q4H PRN ORAL For High Blood Pressure 03/07/17 22:45 04/06/17 22:44 Dextrose (Dextrose 50%) STAT PRN IV Hypoglycemia 03/07/17 22:45 04/06/17 22:44 Dextrose/Sodium Chloride 1,000 ml @ 50 mls/hr Q20H IV 03/08/17 13:15 04/07/17 00:59 03/09/17 09:00 Divalproex Sodium (Depakote) 500 mg EVERY 12 HOURS ORAL 03/08/17 12:30 04/07/17 12:29 03/09/17 08:57 Dolutegravir Sodium (Tivicay) 50 mg DAILY ORAL 03/08/17 16:00 04/07/17 15:59 03/09/17 08:57 Emtricitabine/ Tenofovir (Truvada 200/ 300mg) 1 tab DAILY ORAL 03/08/17 16:00 04/07/17 15:59 03/09/17 08:56 Folic Acid 1 mg/ Magnesium Sulfate 2000 mg/ Multivitamins 10 ml/Sodium Chloride 1,014.2 ml @ 125 mls/ hr Q24H IV 03/08/17 14:00 04/07/17 13:59 03/08/17 15:12 Heparin Sodium (Porcine) (Heparin 5000 units/ml) 5,000 units EVERY 12 HOURS SUBQ 03/08/17 09:00 04/07/17 08:59 03/09/17 08:59 Hydrochlorothiazide (Hydrodiuril) 50 mg DAILY ORAL 03/08/17 09:00 04/07/17 08:59 03/09/17 08:57 Lisinopril (Prinivil) 40 mg DAILY ORAL 03/08/17 09:00 04/07/17 08:59 03/09/17 08:57 Evaro Carbonate (Evaro Carbonate) 300 mg Q8HR ORAL 03/08/17 14:00 04/07/17 13:59 03/09/17 05:30 Lorazepam (Ativan 2mg/ml 1ml) 0.5 mg Q4H PRN IV For Anxiety 03/07/17 22:45 03/14/17 22:44 Morphine Sulfate (Morphine Sulfate) 1 mg Q4H PRN IVP For Pain 7-10 03/07/17 22:45 03/14/17 22:44 Nitroglycerin (Ntg) 0.4 mg Q5M X 3 DOSES PRN SL Prn Chest Pain 03/07/17 22:45 04/06/17 22:44 Ondansetron HCl (Zofran) 4 mg Q6H PRN IVP Nausea & Vomiting 03/07/17 22:45 04/06/17 22:44 Polyethylene Glycol (Miralax) 17 gm HSPRN PRN ORAL Constipation 03/07/17 22:45 04/06/17 22:44 Promethazine HCl/ Codeine (Phenergan with Codeine) 5 ml Q4H PRN ORAL For Cough 03/07/17 22:45 04/06/17 22:44 Temazepam (Restoril) 15 mg HSPRN PRN ORAL Insomnia 03/07/17 22:45 03/14/17 22:44 Thiamine HCl 100 mg/Dextrose 56 ml @ 112 mls/hr Q24H IVPB 03/08/17 14:00 04/07/17 13:59 03/08/17 15:05 Cosmo ([facility])Evon NP Mar 09, 2017 10:09
[2017-03-09 12:00] VITALS: BP 115/75
[2017-03-09] MEDS ORDERED: Sodium Polystyrene Sulfonate 15gm Powder ORAL ONE (13:30)
[2017-03-09] MEDS: Folic Acid 1 MG, Magnesium Sulfate 2,000 MG, Multivitamin - 12 Injection 10 ML in NS w/... IV SCH (14:00)
--- NOTE | 2017-03-09 14:58 | Internal Med Progress Note ---
Subjective Date of Service: Mar 09, 2017 Physician Name Aliza Morse Attending Physician Anthony Rose MD Current Medications Medications (Trade) Dose Ordered Sig/Michael Route PRN Reason Start Time Stop Time Status Last Admin Dose Admin Acetaminophen (Tylenol) 650 mg Q4H PRN ORAL fever 03/07/17 22:45 04/06/17 22:44 Al Hydroxide/Mg Hydroxide (Mylanta II) 30 ml Q6H PRN ORAL dyspepsia 03/07/17 22:45 04/06/17 22:44 Albuterol/ Ipratropium (Albuterol/ Ipratropium) 3 ml Q4H PRN HHN Shortness of Breath 03/07/17 22:45 03/12/17 22:44 Bupropion HCl (Wellbutrin XL) 150 mg DAILY ORAL 03/08/17 09:00 04/07/17 08:59 03/09/17 08:57 Clonidine HCl (Catapres) 0.1 mg Q4H PRN ORAL For High Blood Pressure 03/07/17 22:45 04/06/17 22:44 Dextrose (Dextrose 50%) STAT PRN IV Hypoglycemia 03/07/17 22:45 04/06/17 22:44 Dextrose/Sodium Chloride 1,000 ml @ 50 mls/hr Q20H IV 03/08/17 13:15 04/07/17 00:59 03/09/17 09:00 Divalproex Sodium (Depakote) 500 mg EVERY 12 HOURS ORAL 03/08/17 12:30 04/07/17 12:29 03/09/17 08:57 Dolutegravir Sodium (Tivicay) 50 mg DAILY ORAL 03/08/17 16:00 04/07/17 15:59 03/09/17 08:57 Emtricitabine/ Tenofovir (Truvada 200/ 300mg) 1 tab DAILY ORAL 03/08/17 16:00 04/07/17 15:59 03/09/17 08:56 Folic Acid 1 mg/ Magnesium Sulfate 2000 mg/ Multivitamins 10 ml/Sodium Chloride 1,014.2 ml @ 125 mls/ hr Q24H IV 03/08/17 14:00 04/07/17 13:59 03/08/17 15:12 Heparin Sodium (Porcine) (Heparin 5000 units/ml) 5,000 units EVERY 12 HOURS SUBQ 03/08/17 09:00 04/07/17 08:59 03/09/17 08:59 Hydrochlorothiazide (Hydrodiuril) 50 mg DAILY ORAL 03/08/17 09:00 04/07/17 08:59 03/09/17 08:57 Lisinopril (Prinivil) 40 mg DAILY ORAL 03/08/17 09:00 04/07/17 08:59 03/09/17 08:57 [place] Carbonate ([place] Carbonate) 300 mg Q8HR ORAL 03/08/17 14:00 04/07/17 13:59 03/09/17 13:32 Lorazepam (Ativan 2mg/ml 1ml) 0.5 mg Q4H PRN IV For Anxiety 03/07/17 22:45 03/14/17 22:44 Morphine Sulfate (Morphine Sulfate) 1 mg Q4H PRN IVP For Pain 7-10 03/07/17 22:45 03/14/17 22:44 Nitroglycerin (Ntg) 0.4 mg Q5M X 3 DOSES PRN SL Prn Chest Pain 03/07/17 22:45 04/06/17 22:44 Ondansetron HCl (Zofran) 4 mg Q6H PRN IVP Nausea & Vomiting 03/07/17 22:45 04/06/17 22:44 Polyethylene Glycol (Miralax) 17 gm HSPRN PRN ORAL Constipation 03/07/17 22:45 04/06/17 22:44 Promethazine HCl/ Codeine (Phenergan with Codeine) 5 ml Q4H PRN ORAL For Cough 03/07/17 22:45 04/06/17 22:44 Temazepam (Restoril) 15 mg HSPRN PRN ORAL Insomnia 03/07/17 22:45 03/14/17 22:44 Thiamine HCl 100 mg/Dextrose 56 ml @ 112 mls/hr Q24H IVPB 03/08/17 14:00 04/07/17 13:59 03/08/17 15:05 Allergies: Coded Allergies: No Known Allergies (Unverified , 06/07/12) ROS Limited/Unobtainable: No Constitutional: Reports: no symptoms HEENT: Reports: no symptoms Cardiovascular: Reports: no symptoms Respiratory: Reports: no symptoms Gastrointestinal/Abdominal: Reports: no symptoms Genitourinary: Reports: no symptoms Neurologic/Psychiatric: Reports: no symptoms Subjective 66 YO M admitted with altered mental status. slurred speech and vertigo. Cover for Int Cristhian-Dr Rose Objective Last Vital Signs Date Time Temp Pulse Resp B/P (MAP) Pulse Ox O2 Delivery O2 Flow Rate FiO2 03/09/17 12:00 98.0 88 20 115/75 97 Room Air 03/09/17 09:37 21 General Appearance: WD/WN, no apparent distress, alert EENT: PERRL/EOMI, normal ENT inspection, TMs normal Neck: non-tender, normal alignment, supple, normal inspection Cardiovascular: normal peripheral pulses, normal rate, regular rhythm, no gallop/murmur, no JVD Respiratory/Chest: chest wall non-tender, lungs clear, normal breath sounds, no respiratory distress, no accessory muscle use Abdomen: normal bowel sounds, non tender, soft, no organomegaly, no mass Extremities: normal range of motion, non-tender 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, no motor/sensory deficits Skin: normal pigmentation, warm/dry Laboratory Tests Test 03/09/17 04:30 White Blood Count 5.7 K/UL (4.8-10.8) Red Blood Count 4.50 M/UL (4.70-6.10) L Hemoglobin 13.1 G/DL (14.2-18.0) L Hematocrit 41.4 % (42.0-52.0) L Mean Corpuscular Volume 92 FL (80-99) Mean Corpuscular Hemoglobin 29.1 PG (27.0-31.0) Mean Corpuscular Hemoglobin Concent 31.6 G/DL (32.0-36.0) L Red Cell Distribution Width 14.2 % (11.6-14.8) Platelet Count 242 K/UL (150-450) Mean Platelet Volume 7.6 FL (6.5-10.1) Neutrophils (%) (Auto) 37.4 % (45.0-75.0) L Lymphocytes (%) (Auto) 48.7 % (20.0-45.0) H Monocytes (%) (Auto) 9.3 % (1.0-10.0) Eosinophils (%) (Auto) 3.4 % (0.0-3.0) H Basophils (%) (Auto) 1.2 % (0.0-2.0) Sodium Level 139 MMOL/L (136-145) Potassium Level 5.3 MMOL/L (3.5-5.1) H Chloride Level 104 MMOL/L (98-107) Carbon Dioxide Level 28 MMOL/L (21-32) Anion Gap 7 mmol/L (5-15) Blood Urea Nitrogen 16 mg/dL (7-18) Creatinine 1.3 MG/DL (0.55-1.30) Estimat Glomerular Filtration Rate > 60 mL/min (>60) Glucose Level 92 MG/DL (74-106) Calcium Level 10.5 MG/DL (8.5-10.1) H Intake and Output 03/09/17 03/10/17 19:00 07:00 Intake Total 730 ml Output Total 840 ml Balance -110 ml Intake Oral 480 ml IV Total 250 ml Output Urine Total 840 ml Assessment/Plan Problem List: (1) Bipolar depression (2) Slurred speech Assessment & Plan: resolved (3) Vertigo (4) Altered mental status Assessment & Plan: resolved (5) probably seizure episodes Assessment & Plan: See neurology note. Continue depakote (6) HIV disease Assessment & Plan: See Infectious Disease note. Cont HAART per ID (7) HTN (hypertension) Assessment & Plan: continue lisinopril (8) COPD (chronic obstructive pulmonary disease) Status: progressing ALIZA MORSE Mar 09, 2017 14:58
[2017-03-09] MEDS: Thiamine 100mg IVPB (Q24H) IVPB SCH ×2 (15:03)
[2017-03-09] MEDS ORDERED: D5 1/2NS 1000ml IV ONE (16:11)
[2017-03-09 16:14] VITALS: BP 133/67
[2017-03-09 20:00] VITALS: BP 131/67
[2017-03-10] VITALS: BP 116/79
[2017-03-10 04:00] VITALS: BP 121/81
[2017-03-10 07:37] LABS: BASOPHILS % (AUTO) 1.3 % (0.0-2.0); EOSINOPHILS % (AUTO) 3.3 % (0.0-3.0); LYMPHOCYTES % (AUTO) 35.9 % (20.0-45.0); MEAN CORPUSCULAR HEMOGLOBIN 28.2 PG (27.0-31.0); MEAN CORPUSCULAR HGB CONC 31.4 G/DL (32.0-36.0); MEAN CORPUSCULAR VOLUME 90 FL (80-99); MEAN PLATELET VOLUME 8.5 FL (6.5-10.1); MONOCYTES % (AUTO) 8.1 % (1.0-10.0); NEUTROPHILS % (AUTO) 51.5 % (45.0-75.0); PLATELET COUNT 236 K/UL (150-450); RED BLOOD COUNT 4.85 M/UL (4.70-6.10); RED CELL DISTRIBUTION WIDTH 13.7 % (11.6-14.8); WHITE BLOOD COUNT 6.2 K/UL (4.8-10.8)
[2017-03-10 07:49] LABS: ANION GAP 7 mmol/L (5-15); CALCIUM 9.9 MG/DL (8.5-10.1); CARBON DIOXIDE 28 MMOL/L (21-32); CHLORIDE 102 MMOL/L (98-107); CREATININE 1.1 MG/DL (0.55-1.30); GLOMERULAR FILTRATION RATE > 60 mL/min (>60); POTASSIUM 3.8 MMOL/L (3.5-5.1); SODIUM 137 MMOL/L (136-145)
[2017-03-10 08:00] VITALS: BP 111/73
[2017-03-10] MEDS: BuPROPion XL 150mg tab ORAL SCH (08:48)
[2017-03-10] MEDS: Dolutegravir Sodium 50mg tab ORAL SCH (08:49)
[2017-03-10] MEDS: Depakote 500mg tab ORAL SCH (08:49)
[2017-03-10] MEDS: Lisinopril 20mg tab ORAL SCH (08:49)
[2017-03-10] MEDS: Heparin 5000 units/ml inj SUBQ SCH (08:51)
--- NOTE | 2017-03-10 09:07 | Pulmonology Progress Note ---
Assessment/Plan Assessment/Plan ASSESSMENT acute toxic metabolic encephalopathy-resolved HIV status ( with preserved CD4 counts) COPD psych disorder , likely bipolar HTN Hyperlipidemia marijuana user PLAN OF CARE MS floor gentle IV hydration neuro eval appreciated CT head negative for any acute IC pathology MRI brain negative Carotid Duplex Venous Duplex tox screen + marijuana O2 HHN prn lithium level not detectable BP management with current regimen and optimize as needed DVT prophylaxis Pain management Bowel regimen PT/OT/ST per his PMD patient with well controlled HIV disease with preserved CD4 count patient smoked marijuana and later developed symptoms, that stopped probably can be dc home, BP stable, mental status stable stable for dc home. dc as per attending fup with PMD case discussed and evaluated by supervising physician Subjective Allergies: Coded Allergies: No Known Allergies (Unverified , 06/07/12) Subjective mental status stable denies CP, SOB, palpitations, dizziness, DASILVA BP stable Objective Last 24 Hour Vital Signs Date Time Temp Pulse Resp B/P (MAP) Pulse Ox O2 Delivery O2 Flow Rate FiO2 03/10/17 08:49 111/73 03/10/17 07:31 73 18 Room Air 21 03/10/17 04:00 98.1 87 18 121/81 100 Room Air 03/10/17 00:00 97.4 89 18 116/79 99 03/09/17 23:20 77 18 Room Air 21 03/09/17 20:00 97.5 77 18 131/67 96 Room Air 03/09/17 16:14 98.1 79 18 133/67 97 Room Air 03/09/17 12:00 98.0 88 20 115/75 97 Room Air 03/09/17 09:37 81 18 Room Air 21 Objective General Appearance: WD/WN, no apparent distress, alert Lines, tubes and drains: peripheral HEENT: normocephalic, atraumatic, anicteric, mucous membranes moist Neck: non-tender, supple Respiratory/Chest: chest wall non-tender, lungs clear, no respiratory distress , no accessory muscle use Cardiovascular/Chest: normal rate, regular rhythm, no JVD Abdomen: normal bowel sounds, non tender, soft Extremities: normal range of motion, non-tender, no calf tenderness Skin Exam: normal pigmentation, warm/dry 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, alert, responsive Musculoskeletal: normal muscle bulk Laboratory Tests 03/10/17 07:00: White Blood Count 6.2, Red Blood Count 4.85, Hemoglobin 13.7L, Hematocrit 43.6, Mean Corpuscular Volume 90, Mean Corpuscular Hemoglobin 28.2, Mean Corpuscular Hemoglobin Concent 31.4L, Red Cell Distribution Width 13.7, Platelet Count 236, Mean Platelet Volume 8.5, Neutrophils (%) (Auto) 51.5, Lymphocytes (%) (Auto) 35.9, Monocytes (%) (Auto) 8.1, Eosinophils (%) (Auto) 3.3H, Basophils (%) (Auto ) 1.3, Sodium Level 137, Potassium Level 3.8, Chloride Level 102, Carbon Dioxide Level 28, Anion Gap 7, Blood Urea Nitrogen 13, Creatinine 1.1, Estimat Glomerular Filtration Rate > 60, Glucose Level 94, Calcium Level 9.9 Current Medications Medications (Trade) Dose Ordered Sig/Michael Route PRN Reason Start Time Stop Time Status Last Admin Dose Admin Acetaminophen (Tylenol) 650 mg Q4H PRN ORAL fever 03/07/17 22:45 04/06/17 22:44 Al Hydroxide/Mg Hydroxide (Mylanta II) 30 ml Q6H PRN ORAL dyspepsia 03/07/17 22:45 04/06/17 22:44 Albuterol/ Ipratropium (Albuterol/ Ipratropium) 3 ml Q4H PRN HHN Shortness of Breath 03/07/17 22:45 03/12/17 22:44 Bupropion HCl (Wellbutrin XL) 150 mg DAILY ORAL 03/08/17 09:00 04/07/17 08:59 03/10/17 08:48 Clonidine HCl (Catapres) 0.1 mg Q4H PRN ORAL For High Blood Pressure 03/07/17 22:45 04/06/17 22:44 Dextrose (Dextrose 50%) STAT PRN IV Hypoglycemia 03/07/17 22:45 04/06/17 22:44 Divalproex Sodium (Depakote) 500 mg EVERY 12 HOURS ORAL 03/08/17 12:30 04/07/17 12:29 03/10/17 08:49 Dolutegravir Sodium (Tivicay) 50 mg DAILY ORAL 03/08/17 16:00 04/07/17 15:59 03/10/17 08:49 Emtricitabine/ Tenofovir (Truvada 200/ 300mg) 1 tab DAILY ORAL 03/08/17 16:00 04/07/17 15:59 03/10/17 08:48 Heparin Sodium (Porcine) (Heparin 5000 units/ml) 5,000 units EVERY 12 HOURS SUBQ 03/08/17 09:00 04/07/17 08:59 03/10/17 08:51 Hydrochlorothiazide (Hydrodiuril) 50 mg DAILY ORAL 03/08/17 09:00 04/07/17 08:59 03/10/17 08:49 Lisinopril (Prinivil) 40 mg DAILY ORAL 03/08/17 09:00 04/07/17 08:59 03/10/17 08:49 [place] Carbonate ([place] Carbonate) 300 mg Q8HR ORAL 03/08/17 14:00 04/07/17 13:59 03/10/17 05:29 Lorazepam (Ativan 2mg/ml 1ml) 0.5 mg Q4H PRN IV For Anxiety 03/07/17 22:45 03/14/17 22:44 Morphine Sulfate (Morphine Sulfate) 1 mg Q4H PRN IVP For Pain 7-10 03/07/17 22:45 03/14/17 22:44 Nitroglycerin (Ntg) 0.4 mg Q5M X 3 DOSES PRN SL Prn Chest Pain 03/07/17 22:45 04/06/17 22:44 Ondansetron HCl (Zofran) 4 mg Q6H PRN IVP Nausea & Vomiting 03/07/17 22:45 04/06/17 22:44 Polyethylene Glycol (Miralax) 17 gm HSPRN PRN ORAL Constipation 03/07/17 22:45 04/06/17 22:44 Promethazine HCl/ Codeine (Phenergan with Codeine) 5 ml Q4H PRN ORAL For Cough 03/07/17 22:45 04/06/17 22:44 Temazepam (Restoril) 15 mg HSPRN PRN ORAL Insomnia 03/07/17 22:45 03/14/17 22:44 Cosmo PoeSt. Lawrence Health SystemEvon Jimenez NP Mar 10, 2017 09:07
[2017-03-10 12:00] VITALS: BP 111/74
--- NOTE | 2017-03-10 13:25 | Cardiology Report ---
APPROVED REPORT EXAM: Two-dimensional and M-mode echocardiogram with Doppler and color Doppler. INDICATION LV FUNCTION M-Mode DIMENSIONS IVSd1.2 (0.7-1.1cm)Left Atrium (MM)2.8 (1.6-4.0cm) LVDd4.1 (3.5-5.6cm)Aortic Root3.9 (2.0-3.7cm) PWd1.2 (0.7-1.1cm)Aortic Cusp Exc.1.9 (1.5-2.0cm) IVSs1.6 cm LVDs2.9 (2.5-4.0cm) PWs1.7 cm Normal left ventricular chamber size, systolic function and wall motion. Left ventricular ejection fraction estimated to be 60 %. No evidence left ventricular hypertrophy. No evidence of pericardial effusion All other cardiac chamber sizes are within normal limits. Focal aortic valve sclerosis with adequate cusp excursion. Thickened mitral valve leaflets with normal excursion. Mitral annulus and aortic root calcification. Normal pulmonic valve structure. Normal tricuspid valve structure. IVC dilated at 2.6 cm with slight physiologic collapse suggestive of increased RA pressure. A color flow and spectral Doppler study was performed and revealed: No aortic regurgitation. Mild mitral regurgitation. Mitral diastolic velocities suggest reduced left ventricular relaxation c/w mild LV diastolic dysfunction (Grade I ) Moderate tricuspid regurgitation. Tricuspid systolic velocities suggests peak right ventricular systolic pressure of 54 mmHg consistent with moderate pulmonary hypertension. No Pulmonic regurgitation present.
--- NOTE | 2017-03-10 14:41 | Cardiology Report ---
APPROVED REPORT EKG Measurement Heart [id number] Normal sinus rhythm Cannot rule out Anterior infarct, age undetermined Abnormal ECG
[2017-03-10 16:00] VITALS: BP 126/61
--- NOTE | 2017-03-10 16:10 | Internal Med Progress Note ---
Subjective Date of Service: Mar 10, 2017 Physician Name Morse,Aliza Attending Physician Anthony Rose MD Current Medications Medications (Trade) Dose Ordered Sig/Michael Route PRN Reason Start Time Stop Time Status Last Admin Dose Admin Acetaminophen (Tylenol) 650 mg Q4H PRN ORAL fever 03/07/17 22:45 04/06/17 22:44 Al Hydroxide/Mg Hydroxide (Mylanta II) 30 ml Q6H PRN ORAL dyspepsia 03/07/17 22:45 04/06/17 22:44 Albuterol/ Ipratropium (Albuterol/ Ipratropium) 3 ml Q4H PRN HHN Shortness of Breath 03/07/17 22:45 03/12/17 22:44 Bupropion HCl (Wellbutrin XL) 150 mg DAILY ORAL 03/08/17 09:00 04/07/17 08:59 03/10/17 08:48 Clonidine HCl (Catapres) 0.1 mg Q4H PRN ORAL For High Blood Pressure 03/07/17 22:45 04/06/17 22:44 Dextrose (Dextrose 50%) STAT PRN IV Hypoglycemia 03/07/17 22:45 04/06/17 22:44 Divalproex Sodium (Depakote) 500 mg EVERY 12 HOURS ORAL 03/08/17 12:30 04/07/17 12:29 03/10/17 08:49 Dolutegravir Sodium (Tivicay) 50 mg DAILY ORAL 03/08/17 16:00 04/07/17 15:59 03/10/17 08:49 Emtricitabine/ Tenofovir (Truvada 200/ 300mg) 1 tab DAILY ORAL 03/08/17 16:00 04/07/17 15:59 03/10/17 08:48 Heparin Sodium (Porcine) (Heparin 5000 units/ml) 5,000 units EVERY 12 HOURS SUBQ 03/08/17 09:00 04/07/17 08:59 03/10/17 08:51 Hydrochlorothiazide (Hydrodiuril) 50 mg DAILY ORAL 03/08/17 09:00 04/07/17 08:59 03/10/17 08:49 Lisinopril (Prinivil) 40 mg DAILY ORAL 03/08/17 09:00 04/07/17 08:59 03/10/17 08:49 [place] Carbonate ([place] Carbonate) 300 mg Q8HR ORAL 03/08/17 14:00 04/07/17 13:59 03/10/17 13:45 Lorazepam (Ativan 2mg/ml 1ml) 0.5 mg Q4H PRN IV For Anxiety 03/07/17 22:45 03/14/17 22:44 Morphine Sulfate (Morphine Sulfate) 1 mg Q4H PRN IVP For Pain 7-10 03/07/17 22:45 03/14/17 22:44 Nitroglycerin (Ntg) 0.4 mg Q5M X 3 DOSES PRN SL Prn Chest Pain 03/07/17 22:45 04/06/17 22:44 Ondansetron HCl (Zofran) 4 mg Q6H PRN IVP Nausea & Vomiting 03/07/17 22:45 04/06/17 22:44 Polyethylene Glycol (Miralax) 17 gm HSPRN PRN ORAL Constipation 03/07/17 22:45 04/06/17 22:44 Promethazine HCl/ Codeine (Phenergan with Codeine) 5 ml Q4H PRN ORAL For Cough 03/07/17 22:45 04/06/17 22:44 Temazepam (Restoril) 15 mg HSPRN PRN ORAL Insomnia 03/07/17 22:45 03/14/17 22:44 Allergies: Coded Allergies: No Known Allergies (Unverified , 06/07/12) ROS Limited/Unobtainable: No Constitutional: Reports: no symptoms HEENT: Reports: no symptoms Cardiovascular: Reports: no symptoms Respiratory: Reports: no symptoms Gastrointestinal/Abdominal: Reports: no symptoms Genitourinary: Reports: no symptoms Neurologic/Psychiatric: Reports: no symptoms Subjective 66 YO M admitted with altered mental status. slurred speech and vertigo. Cover for Int Salvatore Rose Objective Last Vital Signs Date Time Temp Pulse Resp B/P (MAP) Pulse Ox O2 Delivery O2 Flow Rate FiO2 03/10/17 12:00 98.0 72 18 111/74 100 Room Air 03/10/17 07:31 21 Laboratory Tests Test 03/10/17 07:00 White Blood Count 6.2 K/UL (4.8-10.8) Red Blood Count 4.85 M/UL (4.70-6.10) Hemoglobin 13.7 G/DL (14.2-18.0) L Hematocrit 43.6 % (42.0-52.0) Mean Corpuscular Volume 90 FL (80-99) Mean Corpuscular Hemoglobin 28.2 PG (27.0-31.0) Mean Corpuscular Hemoglobin Concent 31.4 G/DL (32.0-36.0) L Red Cell Distribution Width 13.7 % (11.6-14.8) Platelet Count 236 K/UL (150-450) Mean Platelet Volume 8.5 FL (6.5-10.1) Neutrophils (%) (Auto) 51.5 % (45.0-75.0) Lymphocytes (%) (Auto) 35.9 % (20.0-45.0) Monocytes (%) (Auto) 8.1 % (1.0-10.0) Eosinophils (%) (Auto) 3.3 % (0.0-3.0) H Basophils (%) (Auto) 1.3 % (0.0-2.0) Sodium Level 137 MMOL/L (136-145) Potassium Level 3.8 MMOL/L (3.5-5.1) Chloride Level 102 MMOL/L (98-107) Carbon Dioxide Level 28 MMOL/L (21-32) Anion Gap 7 mmol/L (5-15) Blood Urea Nitrogen 13 mg/dL (7-18) Creatinine 1.1 MG/DL (0.55-1.30) Estimat Glomerular Filtration Rate > 60 mL/min (>60) Glucose Level 94 MG/DL (74-106) Calcium Level 9.9 MG/DL (8.5-10.1) Objective General Appearance: WD/WN, no apparent distress, alert EENT: PERRL/EOMI, normal ENT inspection, TMs normal Neck: non-tender, normal alignment, supple, normal inspection Cardiovascular: normal peripheral pulses, normal rate, regular rhythm, no gallop/murmur, no JVD Respiratory/Chest: chest wall non-tender, lungs clear, normal breath sounds, no respiratory distress, no accessory muscle use Abdomen: normal bowel sounds, non tender, soft, no organomegaly, no mass Extremities: normal range of motion, non-tender 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 Continue depakote (6) HIV disease Assessment & Plan: See Infectious Disease note. Cont HAART per ID (7) HTN (hypertension) Assessment & Plan: continue lisinopril (8) COPD (chronic obstructive pulmonary disease) Status: stable ALIZA MORSE Mar 10, 2017 16:10
[2017-03-10] MEDS ORDERED: DIVALPROEX SOD500 MG ORAL (16:20)
--- NOTE | 2017-03-12 08:42 | Discharge Summary ---
Discharge Summary Hospital Course Date of Admission Mar 07, 2017 at 22:12 Date of Discharge Mar 10, 2017 at 18:12 Admitting Diagnosis ALTERED MENTAL STATUS HPI Ar Aquino is a 66 year old male who was admitted on Mar 07, 2017 at 22 :12 for Altered Mental Status Hospital Course jessica soriano #[id number] Discharge Medications New Medications: Divalproex Sodium (Divalproex Sodium) 500 Mg Tablet.dr 500 MG ORAL EVERY 12 HOURS for 30 Days, TAB Continued Medications: Albuterol/Ipratropium (Combivent) 2 Puffs Aero 2 PUFFS INH QID Budesonide/Formoterol Fumarate (Symbicort 160-4.5 Mcg Inhaler) 1 Puffs Aero 1 PUFFS INH BID Elvitegr/Cobicist/Emtric/Tenof (Stribild Tablet) 1 Each Tablet 1 EACH PO DAILY Hydrochlorothiazide* (Hydrochlorothiazide*) 50 Mg Tablet 50 MG PO DAILY, #30 TAB Take one tablet by mouth daily Lisinopril* (Zestril*) 20 Mg Tablet 40 MG ORAL DAILY, #10 TAB [place] Carbonate* ([place]*) 300 Mg Capsule 300 MG PO Q8H, CAP Take 1 capsule by mouth every 8 hours. Ondansetron Odt* (Zofran Odt*) 4 Mg Tab.rapdis 4 MG ORAL EVERY 8 HOURS, #10 TAB Trimethoprim/Sulfamethoxazole (Bactrim Ds Tablet) 1 Ea Tab 1 TAB PO DAILY Discharge Condition Upon Discharge: stable Discharge Disposition Patient was discharged to Home with Home Health(06) Discharge Diagnoses: Cosmo (Madhavisabas)Evon NP Mar 12, 2017 08:42
--- NOTE | 2017-03-12 19:15 | Discharge Summary 2 SIG ---
DATE OF ADMISSION: 03/07/2017 DATE OF DISCHARGE: 03/10/2017 REASON FOR ADMISSION: 66-year-old male with psychiatric history, HIV status, HTN, presented to emergency department for evaluation. The patient reported that his roommate asked him to come. Roommate was concerned that the patient may have had a stroke. The patient reported for the last few days increased slurred speech. No facial droop. He denied headache. Denied chest pain or shortness of breath. The patient on multiple psychiatric medications. Patient was unable to provide detailed history. He denied alcohol or drug abuse, but reported smoking marijuana. Workup in the emergency department revealed stable vital signs. CT of the brain revealed no acute intracranial pathology. Troponin was negative. Ammonia was within normal limits. [place] level was not detected. Urine toxicology screen was positive for marijuana. The patient was admitted for further workup with diagnosis of acute toxic metabolic encephalopathy, psychiatric disorder, human immunodeficiency virus status, chronic obstructive pulmonary disease, hypertension and marijuana user. HOSPITAL COURSE: The patient was admitted to Medical/Surgical floor. The patient was started on gentle IV hydration. Neurology evaluation was requested. As mentioned above, CT of the head was negative for acute intracranial pathology. Subsequently, MRI of the brain was done, which was negative for any evidence of an acute intracranial pathology as well. EEG was normal. Venous duplex bilateral lower extremities was negative. Blood pressure was managed with current medication regimen and was stable. DVT prophylaxis provided. Pain management was addressed. Bowel regimen was instituted. The patient was working with physical and occupational therapists. Urine toxicology screen was positive for marijuana. The patient was counseled to limit the use of marijuana. Per primary medical doctor, the patient had well-controlled human immunodeficiency virus disease with preserved CD4 count. According to primary medical doctor, the patient smoked marijuana and later developed the symptoms. Neurologist closely followed, EEG was negative. There was a conflicting evidence regarding use of alcohol. The patient was started on thiamine. Alcohol level was negative. The patient was explained by neurologist that alcohol may lower the threshold for seizures. No seizure activities while at the hospital . The patient was started on Depakote 500 mg q.12 h. At this point, the patient was recommended not to drive and DMV was notified. LFTs were closely monitored. Initially, AST slightly elevated-44. The next day down to 29. Stable ALT and bilirubin. Lipid panel within normal limits. TSH within normal limits. The patient was stable for discharge. The patient to follow up with the primary medical doctor next week. FINAL DIAGNOSES: 1. 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 2. Acute toxic metabolic encephalopathy, resolved. 3. Human immunodeficiency virus status with preserved CD4 count. 4. Chronic obstructive pulmonary disease. 5. Psychiatric disorder, likely bipolar. 6. Hypertension. 7. Hyperlipidemia. 8. Marijuana user. 9. Possible alcohol abuse. DISCHARGE MEDICATIONS: See medication reconciliation list. DISCHARGE INSTRUCTIONS: The patient was discharged home with home health services. Follow up with primary medical doctor next week. Anthony Rose M.D. Evon PoeKingsbrook Jewish Medical CenterTony NGeorgePGeorge DR: JASON JOB#: [id number] CC: [id number]
--- NOTE | 2017-03-12 21:17 | Electroencephalogram ---
DATE OF PROCEDURE: 03/08/2017 ELECTROENCEPHALOGRAPHY REPORT READING PHYSICIAN: Sandip Michael M.D. REQUESTING PHYSICIAN: Jorge Delgadillo M.D. HISTORY: This is a 66-year-old man with a history of transient episode of unresponsiveness of confusion with slurred speech. EEG was requested to assess possible seizure activities. Prior to admission, he was taking lithium, Depakote, and morphine. He smokes some marijuana. CAT scan of the brain reported as negative. EEG was done using 18 electrodes, placed scalp to scalp, scalp to ear montages according to 10/20 [employer] System. Throughout the recording, most wakeful portions of recording, background activity consists of low to medium voltage, well organized alpha activities 8 to 9 cycles per second bilaterally with good response to physiological stimulation. Photic stimulation from 3 to 32 hertz was done, result no significant changes. Throughout the recording, waking, wakeful, and sleep stages noted, intermittently appearing small voltage spikes predominantly in right parietal frontal region with a phase reversing at T4, F4, and F8, but without clinical evidence of paroxysmal event. As recording progressed, there was further attenuation of background with appearance of sleep spindles. No asymmetry from [id number] noted. IMPRESSION: Abnormal EEG in presence of mild epileptiform and intermittent activity emanating from right frontal parietal region. COMMENT: Above abnormality may indicate underlying structural lesion. Epileptiform activity may reflect a high risk of clinical transformation. Clinical correlation is necessary. Sandip Michael M.D. DR: LAURI JOB#: [id number] CC:
--- NOTE | 2017-03-21 00:11 | Diagnostic Imaging Report ---
APPROVED REPORT CPT Code: 18513 Present Symptoms Comments: R/O DVT BILATERAL: Imaging reveals a patent deep venous system bilaterally. There is no evidence of thrombus within the femoral, popliteal or tibial segments. The greater saphenous veins are also within normal limits. Doppler indicates normal spontaneous flow within these segments.
--- NOTE | 2017-03-21 00:13 | Diagnostic Imaging Report ---
APPROVED REPORT CPT Code: 87381 Vascular Symptoms CVA/TIA: CAROTID (BILATERAL) - Imaging reveals no significant plaque within the right and left extracranial carotid arteries. The Doppler spectral flow analysis is within normal limits throughout the extracranial carotid arteries bilaterally. VERTEBRAL- The vertebral arteries are within normal limits.
== END 2017-03-10 18:12 | disposition home or self-care (01) | DRG 100 ==
LOC: EMR 22:10 → 3E 22:12 → EDBEDREQ 22:35
DX: G40.209 Localization-related (focal) (partial) symptomatic epilepsy and epileptic syndromes with complex partial seizures, not intractable, without status epilepticus (principal); G92 Toxic encephalopathy; B20 Human immunodeficiency virus [HIV] disease; J44.9 Chronic obstructive pulmonary disease, unspecified; F31.9 Bipolar disorder, unspecified; I10 Essential (primary) hypertension; E78.5 Hyperlipidemia, unspecified; F12.90 Cannabis use, unspecified, uncomplicated; F10.10 Alcohol abuse, uncomplicated; F32.9 Major depressive disorder, single episode, unspecified
CPT/HCPCS: 36415; 70450; 70551; 80048; 80053; 80061; 80178; 80307; 80329; 82140; 82550; 82553; 84443; 84484; 85025; 85610; 85730; 93005; 93306; 93880; 93970; 94664; 95819; 99285

== ENCOUNTER 2017-05-02 18:10 | Emergency (ER) | payer BC ==
[~2017-05-02] VITALS: Ht 185.4 cm; Wt 85.3 kg
[~2017-05-02 18:10] MED LIST changes: +DIVALPROEX SOD500 MG ORAL
[2017-05-02 18:45] VITALS: BP 105/72
--- NOTE | 2017-05-02 20:50 | Emergency Room Report ---
History of Present Illness General Chief Complaint: General Complaint Source: Patient Present Illness HPI 66 YO Male presents to the ED c/o need for seizure medication refill. takes Depakote 500 BID. Denies recent seizure, denies symptoms or other complaints at this time. pt. reports he is unable to see PCP for medication refill. Denies LOC , DASILVA, trauma or fall. Denies CP, Palpitations, LOC, AMS, dizziness, Changes in Vision, Sensation, paresthesias, or a sudden severe headache. Allergies: Coded Allergies: No Known Allergies (Unverified , 06/07/12) Patient History Past Medical History: see triage record Past Surgical History: none Pertinent Family History: none Reviewed Nursing Documentation: PMH: Agreed, PSxH: Agreed Nursing Documentation-PMH Past Medical History: No History, Except For Hx Hypertension: Yes Hx COPD: Yes Hx Neurological Problems: No Hx Seizures: Yes Review of Systems All Other Systems: negative except mentioned in HPI Physical Exam Vital Signs Date Time Temp Pulse Resp B/P (MAP) Pulse Ox O2 Delivery O2 Flow Rate FiO2 05/02/17 18:13 97.9 86 18 105/72 98 Room Air Sp02 EP Interpretation: reviewed, normal General Appearance: no apparent distress, alert, GCS 15, non-toxic Head: normocephalic, atraumatic ENT: hearing grossly normal, normal voice Neck: full range of motion Respiratory: lungs clear, normal breath sounds, speaking full sentences Cardiovascular #1: regular rate, rhythm Musculoskeletal: back normal, gait/station normal, normal range of motion, non- tender Neurologic: alert, oriented x3, responsive, motor strength/tone normal, sensory intact, normal gait, speech normal, grossly normal Psychiatric: judgement/insight normal Skin: normal color, no rash, warm/dry, well hydrated Lymphatic: no adenopathy Medical Decision Making PA Attestation Dr. Jeronimo is my supervising Physician whom patient management has been discussed with. Diagnostic Impression: Primary Impression: Encounter for medication refill ER Course 66 YO Male presents to the ED c/o need for seizure medication refill. takes Depakote 500 BID. Denies recent seizure, denies symptoms or other complaints at this time. pt. reports he is unable to see PCP for medication refill. Denies LOC , DASILVA, trauma or fall. Denies CP, Palpitations, LOC, AMS, dizziness, Changes in Vision, Sensation, paresthesias, or a sudden severe headache. Ddx considered but are not limited to: drug seeking, OD, Seizure, non-compliance , need for medication refill. Vital signs: are WNL, pt. is afebrile H&PE are most consistent with need for medication refill. Pt. A & O x 3 , NAD, non-toxic in appearance with normal judgement. ORDERS: none required at this time, the diagnosis is clinical ED INTERVENTIONS: None required at this time. --I do not identify an emergent condition at this time. With current presentation, pt. is stable for close outpatient follow up and conservative treatment. D/w pt. to return promptly to ED with worsening or new symptoms.- Pt. (and or responsible republican) verbalizes' understanding and agreement with proposed treatment plan.proposed treatment plan. DISCHARGE: At this time pt. is stable for d/c to home. Will provide printed patient care instructions, and any necessary prescriptions. Care plan and follow up instructions have been discussed with the patient prior to discharge. Last Vital Signs Date Time Temp Pulse Resp B/P (MAP) Pulse Ox O2 Delivery O2 Flow Rate FiO2 05/02/17 18:45 97.9 18 105/72 98 Room Air 05/02/17 18:13 86 Disposition: HOME, SELF-CARE Condition: Stable Scripts Divalproex Sodium (Depakote) 500 Mg Tablet. 500 MG PO BID, #30 TAB Prov: Yuli Kincaid 05/02/17 Referrals: NON PHYSICIAN (PCP) Patient Instructions: Medicine Refill at the Emergency Department Additional Instructions: Take medications as directed. Follow up with a Primary Care Provider in 3 days, even if your symptoms have resolved. --Please review list of primary care clinics, if you do not already have a primary care provider Return sooner to ED if new symptoms occur, or current symptoms become worse. - Please note that this Emergency Department Report was dictated using [employer] worker technology software, occasionally this can lead to erroneous entry secondary to interpretation by the dictation equipment. Yuli Kincaid May 02, 2017 20:50
[2017-05-02] MEDS ORDERED: DEPAKOTE500 MG PO (20:51)
[2017-05-02 20:53] VITALS: BP 105/72
== END 2017-05-02 20:53 | disposition home or self-care (01) ==
LOC: EMR 19:15
DX: Z76.0 Encounter for issue of repeat prescription (principal); G40.909 Epilepsy, unspecified, not intractable, without status epilepticus; J44.9 Chronic obstructive pulmonary disease, unspecified; I10 Essential (primary) hypertension
CPT/HCPCS: 99282

== ENCOUNTER 2017-05-27 14:43 | Emergency (ER) | payer BC ==
[~2017-05-27] VITALS: Ht 182.9 cm; Wt 78.5 kg
[~2017-05-27 14:43] MED LIST changes: +DEPAKOTE500 MG PO
--- NOTE | 2017-05-27 14:59 | Emergency Room Report ---
History of Present Illness General Chief Complaint: Chest Pain Source: Patient Present Illness HPI 66-year-old male, history of COPD, epilepsy, p/w chest pain and cough for 7 days. Chest pain started while at rest and on exertion, also worsening when he coughs. Localized to substernal area, no radiation to back or other areas, sharp in nature, gradual in onset, multiple episodes + SOB. Denies palpitations , diaphoresis, n/v. Denies fever, chills, abd pain. Denies trauma. Last stress test was 17 years ago Allergies: Coded Allergies: No Known Allergies (Unverified , 06/07/12) Patient History Past Medical History: see triage record Past Surgical History: none Pertinent Family History: none Reviewed Nursing Documentation: PMH: Agreed, PSxH: Agreed Nursing Documentation-PMH Past Medical History: No History, Except For Hx Hypertension: Yes Hx COPD: Yes Hx Neurological Problems: No Hx Seizures: Yes Review of Systems All Other Systems: negative except mentioned in HPI Physical Exam Vital Signs Date Time Temp Pulse Resp B/P (MAP) Pulse Ox O2 Delivery O2 Flow Rate FiO2 05/27/17 14:45 97.9 107 23 131/74 96 Room Air 97.9 Sp02 EP Interpretation: reviewed, normal General Appearance: alert, GCS 15, non-toxic, mild distress Head: normocephalic, atraumatic Eyes: bilateral eye normal inspection, bilateral eye PERRL, bilateral eye EOMI ENT: normal ENT inspection, normal pharynx, normal voice, moist mucus membranes Neck: normal inspection, full range of motion, supple Respiratory: normal inspection, lungs clear, normal breath sounds, no respiratory distress, no retraction, no wheezing, speaking full sentences, chest symmetrical Cardiovascular #1: normal inspection, regular rate, rhythm, no edema, normal capillary refill Cardiovascular #2: 2+ radial (R), 2+ radial (L) Gastrointestinal: normal inspection, non tender, soft, non-distended, no guarding Genitourinary: no CVA tenderness Musculoskeletal: normal inspection, back normal, normal range of motion, non- tender Neurologic: normal inspection, alert, oriented x3, responsive, motor strength/ tone normal, sensory intact, normal gait, speech normal Psychiatric: normal inspection, judgement/insight normal, memory normal Skin: normal inspection, normal color, no rash, warm/dry, well hydrated, normal turgor Medical Decision Making Diagnostic Impression: Primary Impression: Pneumonia ER Course 66-year-old male with chest pain for one week DDX: ACS vs. CHF vs. pneumonia vs. gastritis/GERD vs. pneumothorax Plan: IV access, obtain labs including troponin, EKG, CXR ER course: Patient remained chest pain free during ED stay. Patient has been conversing without issue, not in respiratory distress, not hypoxic or tachypneic Able to tolerate by mouth Will discharge home with antibiotics Disposition: Patient will be discharged to home with levaquin Strict precautions discussed with patient on when to emergently return to the ED : this includes worsening/severe chest pain, palpitations, shortness of breath, syncopal episodes, fever or chills, which may indicate severe illness. Patient verbalized understanding. Patient instructed to follow up with their PMD within the next 2 days. Patient also instructed to follow up with a superintendent board mill within 2 days for possible outpatient stress test. Patient agrees with plan. Please note that this Emergency Department Report was dictated using [employer] technology software, occasionally this can lead to erroneous entry secondary to interpretation by the dictation equipment. EKG Diagnostic Results EP Interpretation: Yes Rate: normal Rhythm: NSR ST Segments: No acute changes y ASA given to patient: y Rhythm Strip EP Interpretation: Yes Rate: 70 Rhythm: NSR, no PVCs, no ectopy Chest X-ray * CXR: Ordered: Yes 1 view Indication: Chest pain EP interpretation: Yes Interpretation: No consolidation, no effusion, no PTX, no acute cardiopulmonary disease Impression: No acute disease Electronically signed by Jayesh Farmer MD Laboratory Tests Test 05/27/17 15:35 White Blood Count 8.7 K/UL (4.8-10.8) Red Blood Count 4.23 M/UL (4.70-6.10) L Hemoglobin 12.4 G/DL (14.2-18.0) L Hematocrit 37.9 % (42.0-52.0) L Mean Corpuscular Volume 90 FL (80-99) Mean Corpuscular Hemoglobin 29.4 PG (27.0-31.0) Mean Corpuscular Hemoglobin Concent 32.8 G/DL (32.0-36.0) Red Cell Distribution Width 15.0 % (11.6-14.8) H Platelet Count 226 K/UL (150-450) Mean Platelet Volume 8.2 FL (6.5-10.1) Neutrophils (%) (Auto) 62.6 % (45.0-75.0) Lymphocytes (%) (Auto) 22.2 % (20.0-45.0) Monocytes (%) (Auto) 13.6 % (1.0-10.0) H Eosinophils (%) (Auto) 0.9 % (0.0-3.0) Basophils (%) (Auto) 0.8 % (0.0-2.0) Sodium Level 137 MMOL/L (136-145) Potassium Level 3.6 MMOL/L (3.5-5.1) Chloride Level 100 MMOL/L (98-107) Carbon Dioxide Level 30 MMOL/L (21-32) Anion Gap 7 mmol/L (5-15) Blood Urea Nitrogen 9 mg/dL (7-18) Creatinine 0.8 MG/DL (0.55-1.30) Estimate Glomerular Filtration Rate > 60 mL/min (>60) Glucose Level 114 MG/DL (74-106) H Calcium Level 10.4 MG/DL (8.5-10.1) H Total Bilirubin 0.4 MG/DL (0.2-1.0) Aspartate Amino Transferase (AST) 37 U/L (15-37) Alanine Aminotransferase (ALT) 37 U/L (12-78) Alkaline Phosphatase 88 U/L (46-116) Troponin I 0.000 ng/mL (0.000-0.056) Pro-B-Type Natriuretic Peptide 166 pg/mL (0-125) H Total Protein 7.8 G/DL (6.4-8.2) Albumin 2.7 G/DL (3.4-5.0) L Globulin 5.1 g/dL Albumin/Globulin Ratio 0.5 (1.0-2.7) L Last Vital Signs Date Time Temp Pulse Resp B/P (MAP) Pulse Ox O2 Delivery O2 Flow Rate FiO2 05/27/17 14:45 97.9 107 23 131/74 96 Room Air 97.9 Disposition: HOME, SELF-CARE Condition: Improved Scripts Levofloxacin* (LEVAQUIN*) 750 Mg Tablet 750 MG ORAL DAILY for 7 Days, #14 TAB Prov: Jayesh Farmer M.D. 05/27/17 Jayesh Farmer M.D. May 27, 2017 14:59
[2017-05-27] MEDS ORDERED: Aspirin Baby 81mg ORAL ONE (15:00)
[2017-05-27 15:52] LABS: BASOPHILS % (AUTO) 0.8 % (0.0-2.0); EOSINOPHILS % (AUTO) 0.9 % (0.0-3.0); HEMATOCRIT 37.9 % (42.0-52.0); HEMOGLOBIN 12.4 G/DL (14.2-18.0); LYMPHOCYTES % (AUTO) 22.2 % (20.0-45.0); MEAN CORPUSCULAR VOLUME 90 FL (80-99); MONOCYTES % (AUTO) 13.6 % (1.0-10.0); NEUTROPHILS % (AUTO) 62.6 % (45.0-75.0); PLATELET COUNT 226 K/UL (150-450); RED BLOOD COUNT 4.23 M/UL (4.70-6.10); WHITE BLOOD COUNT 8.7 K/UL (4.8-10.8)
[2017-05-27 16:04] LABS: ANION GAP 7 mmol/L (5-15); BLOOD UREA NITROGEN 9 mg/dL (7-18); CALCIUM 10.4 MG/DL (8.5-10.1); CARBON DIOXIDE 30 MMOL/L (21-32); CHLORIDE 100 MMOL/L (98-107); CREATININE 0.8 MG/DL (0.55-1.30); POTASSIUM 3.6 MMOL/L (3.5-5.1); SODIUM 137 MMOL/L (136-145)
[2017-05-27] MEDS ORDERED: LEVAQUIN750 MG ORAL (16:09)
[2017-05-27 16:16] LABS: ALANINE AMINOTRANSFERASE 37 U/L (12-78); ALBUMIN 2.7 G/DL (3.4-5.0); ALBUMIN/GLOBULIN RATIO 0.5 (1.0-2.7); ALKALINE PHOSPHATASE 88 U/L (46-116); ASPARTATE AMINO TRANSFERASE 37 U/L (15-37); BILIRUBIN,TOTAL 0.4 MG/DL (0.2-1.0)
[2017-05-27 16:32] VITALS: BP 131/74
--- NOTE | 2017-05-27 16:39 | Diagnostic Imaging Report ---
Indication: Cough Technique: One view of the chest Comparison: 06/07/2012 Findings: Infiltrates are demonstrated in the left mid and lower lung. There is a left-sided pleural effusion. The heart is borderline enlarged. The right lung and pleural space are probably clear. Impression: Left mid and lower lung infiltrates and left-sided pleural effusion Borderline cardiomegaly
--- NOTE | 2017-05-28 16:29 | Cardiology Report ---
APPROVED REPORT EKG Measurement Heart [id number] Normal sinus rhythm Normal ECG
== END 2017-05-27 16:33 | disposition home or self-care (01) ==
LOC: EMR 15:21
DX: J18.9 Pneumonia, unspecified organism (principal); I10 Essential (primary) hypertension; J44.9 Chronic obstructive pulmonary disease, unspecified; Z86.69 Personal history of other diseases of the nervous system and sense organs
CPT/HCPCS: 36415; 71045; 80053; 83880; 84484; 85025; 93005; 99283

== ENCOUNTER 2018-02-26 18:55 | Inpatient (IN) | payer BC ==
[~2018-02-26] VITALS: Ht 185.4 cm; Wt 72.6 kg
[~2018-02-26 18:55] MED LIST changes: +LEVAQUIN750 MG ORAL
[2018-02-26] MEDS ORDERED: LISINOPRIL5 MG ORAL (19:03)
[2018-02-26 19:10] VITALS: BP 120/103
[2018-02-26] MEDS ORDERED: Solu-MEDROL 125mg Inj IVP ONE (19:15)
--- NOTE | 2018-02-26 19:18 | Emergency Room Report ---
History of Present Illness General Chief Complaint: Dyspnea/Respdistress Source: Patient Present Illness HPI Patient has a history of COPD emphysema. Patient's chronic smoker. Patient has been admitted for pneumonia in the past. Patient's primary care physician is Dr. Delgadillo. Patient states that he's been coughing short of breath for the last week. He thinks that he might have pneumonia again. He has subjective fevers and chills and states that he has yellow sputum. Denies any leg pain leg swelling. Denies any chest pain. He does have significant dyspnea on exertion.No other modifying factors. No other associated signs and symptoms. No other complaints were noted. Symptoms noted to be severe. Allergies: Coded Allergies: No Known Allergies (Unverified , 06/07/12) Patient History Past Medical History: HTN, COPD Past Surgical History: none Pertinent Family History: none Social History: Reports: smoking Reviewed Nursing Documentation: PMH: Agreed; PSxH: Agreed Nursing Documentation-PMH Past Medical History: No History, Except For Hx Hypertension: Yes Hx COPD: Yes Hx Neurological Problems: No Hx Seizures: Yes Review of Systems All Other Systems: negative except mentioned in HPI Physical Exam Vital Signs Date Time Temp Pulse Resp B/P (MAP) Pulse Ox O2 Delivery O2 Flow Rate FiO2 02/26/18 18:56 98.4 92 24 170/88 94 Room Air Sp02 EP Interpretation: reviewed, normal General Appearance: alert, mild distress Head: atraumatic Eyes: bilateral eye normal inspection ENT: normal ENT inspection, hearing grossly normal, normal voice Neck: normal inspection, full range of motion, supple, no bony tend Respiratory: decreased breath sounds, crackles - At bases, wheezing, expiration , inspiration Cardiovascular #1: regular rate, rhythm, no edema Gastrointestinal: normal inspection, normal bowel sounds, non tender, soft, no guarding, no hernia Genitourinary: no CVA tenderness Musculoskeletal: normal inspection, back normal, normal range of motion Neurologic: normal inspection, alert, responsive, speech normal Psychiatric: normal inspection, judgement/insight normal, mood/affect normal Skin: normal inspection, normal color, no rash Medical Decision Making Diagnostic Impression: Primary Impression: COPD (chronic obstructive pulmonary disease) Additional Impressions: Respiratory distress Pneumonia ER Course Patient presents emergency department today complaining of shortness of breath. Differential diagnoses include acute pneumonia, CHF, acute coronary syndrome, pneumothorax, asthma, COPD flare, just to name a few.Given the severity of the patient's presentation I felt this is a highly complex patient. This patient required extensive workup. Patient's exam concerning for pneumonia. Patient was started on antibiotics after blood culture was obtained. Patient also has evidence of COPD. Patient was given Solu-Medrol albuterol Atrovent with significant improvement. Given presentation and history I felt the patient require admission. Case discussed with Dr. Jorge Patel and Dr. Mane Boggs. Patient will be admitted to [facility] for further management. Labs Test 02/26/18 19:25 02/26/18 19:45 White Blood Count 7.5 K/UL (4.8-10.8) Red Blood Count 4.88 M/UL (4.70-6.10) Hemoglobin 13.8 G/DL (14.2-18.0) Hematocrit 42.2 % (42.0-52.0) Mean Corpuscular Volume 87 FL (80-99) Mean Corpuscular Hemoglobin 28.3 PG (27.0-31.0) Mean Corpuscular Hemoglobin Concent 32.8 G/DL (32.0-36.0) Red Cell Distribution Width 12.4 % (11.6-14.8) Platelet Count 194 K/UL (150-450) Mean Platelet Volume 8.5 FL (6.5-10.1) Neutrophils (%) (Auto) 67.6 % (45.0-75.0) Lymphocytes (%) (Auto) 24.2 % (20.0-45.0) Monocytes (%) (Auto) 6.9 % (1.0-10.0) Eosinophils (%) (Auto) 0.2 % (0.0-3.0) Basophils (%) (Auto) 1.1 % (0.0-2.0) Sodium Level 140 MMOL/L (136-145) Potassium Level 4.1 MMOL/L (3.5-5.1) Chloride Level 104 MMOL/L (98-107) Carbon Dioxide Level 28 MMOL/L (21-32) Anion Gap 8 mmol/L (5-15) Blood Urea Nitrogen 12 mg/dL (7-18) Creatinine 0.7 MG/DL (0.55-1.30) Estimat Glomerular Filtration Rate > 60 mL/min (>60) Glucose Level 81 MG/DL (74-106) Lactic Acid Level 1.00 mmol/L (0.4-2.0) Calcium Level 10.0 MG/DL (8.5-10.1) Total Bilirubin 0.6 MG/DL (0.2-1.0) Aspartate Amino Transf (AST/SGOT) 39 U/L (15-37) Alanine Aminotransferase (ALT/SGPT) 28 U/L (12-78) Alkaline Phosphatase 86 U/L (46-116) Troponin I 0.000 ng/mL (0.000-0.056) Pro-B-Type Natriuretic Peptide 257 pg/mL (0-125) Total Protein 8.9 G/DL (6.4-8.2) Albumin 3.5 G/DL (3.4-5.0) Globulin 5.4 g/dL Albumin/Globulin Ratio 0.6 (1.0-2.7) Lipase 66 U/L (73-393) Urine Color Yellow Urine Appearance Clear Urine pH 5 (4.5-8.0) Urine Specific Hoffman 1.020 (1.005-1.035) Urine Protein 1+ (NEGATIVE) Urine Glucose (UA) Negative (NEGATIVE) Urine Ketones 1+ (NEGATIVE) Urine Blood Negative (NEGATIVE) Urine Nitrite Negative (NEGATIVE) Urine Bilirubin Negative (NEGATIVE) Urine Urobilinogen Normal MG/DL (0.0-1.0) Urine Leukocyte Esterase Negative (NEGATIVE) Urine RBC 0-2 /HPF (0 - 0) Urine WBC 0-2 /HPF (0 - 0) Urine Squamous Epithelial Cells None /LPF (NONE/OCC) Urine Bacteria Few /HPF (NONE) Chest X-Ray Diagnostic Results Chest X-Ray Diagnostic Results : Chest X-Ray Ordered: Yes # of Views/Limited/Complete: 1 View Indication: Shortness of Breath EP Interpretation: Yes Interpretation: no effusion, no pneumothorax, other - Right infiltrate Impression: Other - pneumonia Electronically Signed by: Electronically signed by Bryce Howard MD Last Vital Signs Date Time Temp Pulse Resp B/P (MAP) Pulse Ox O2 Delivery O2 Flow Rate FiO2 02/26/18 19:10 92 24 Room Air 02/26/18 19:10 98.4 120/103 98 Status: improved Disposition: ADMITTED INPATIENT Condition: Serious Bryce Howard MD Feb 26, 2018 19:18
[2018-02-26 19:41] LABS: BASOPHILS % (AUTO) 1.1 % (0.0-2.0); EOSINOPHILS % (AUTO) 0.2 % (0.0-3.0); HEMATOCRIT 42.2 % (42.0-52.0); HEMOGLOBIN 13.8 G/DL (14.2-18.0); LYMPHOCYTES % (AUTO) 24.2 % (20.0-45.0); MEAN CORPUSCULAR VOLUME 87 FL (80-99); MONOCYTES % (AUTO) 6.9 % (1.0-10.0); NEUTROPHILS % (AUTO) 67.6 % (45.0-75.0); PLATELET COUNT 194 K/UL (150-450); RED BLOOD COUNT 4.88 M/UL (4.70-6.10); RED CELL DISTRIBUTION WIDTH 12.4 % (11.6-14.8); WHITE BLOOD COUNT 7.5 K/UL (4.8-10.8)
[2018-02-26] MEDS: Ipratropium 0.02% Inh Soln 2.5ml UD HHN SCH ×3 (19:43→20:18)
[2018-02-26] MEDS: Albuterol ud Inhalation HHN SCH ×3 (19:45→20:18)
[2018-02-26 19:56] LABS: ANION GAP 8 mmol/L (5-15); BLOOD UREA NITROGEN 12 mg/dL (7-18); CARBON DIOXIDE 28 MMOL/L (21-32); CHLORIDE 104 MMOL/L (98-107); CREATININE 0.7 MG/DL (0.55-1.30); POTASSIUM 4.1 MMOL/L (3.5-5.1); SODIUM 140 MMOL/L (136-145)
[2018-02-26 20:10] LABS: ALANINE AMINOTRANSFERASE 28 U/L (12-78); ALBUMIN 3.5 G/DL (3.4-5.0); ALBUMIN/GLOBULIN RATIO 0.6 (1.0-2.7); ALKALINE PHOSPHATASE 86 U/L (46-116); ASPARTATE AMINO TRANSFERASE 39 U/L (15-37); BILIRUBIN,TOTAL 0.6 MG/DL (0.2-1.0)
[2018-02-26 20:19] LABS: APPEARANCE,URINE CLEAR; BILIRUBIN, URINE NEGATIVE (NEGATIVE); GLUCOSE, URINE (UA) NEGATIVE (NEGATIVE); KETONES,URINE 1+ (NEGATIVE); LEUKOCYTE ESTERASE ,URINE NEGATIVE (NEGATIVE); NITRITE,URINE NEGATIVE (NEGATIVE); PH,URINE 5 (4.5-8.0); PROTEIN,URINE 1+ (NEGATIVE); UROBILINOGEN,URINE NORMAL MG/DL (0.0-1.0)
[2018-02-26 20:24] LABS: COLOR,URINE YELLOW
[2018-02-26] MEDS ORDERED: Piperacillin/Tazobactam 3.375 GM in NS 110 ML IVPB ONE (20:45)
[2018-02-26 22:10] VITALS: BP 123/74
--- NOTE | 2018-02-26 22:10 | History & Physical ---
History and Physical History & Physicial Full note dictated 67 yo with: COPD HIV (undetectable VL, 337 CD4 in 02/09) on Genvoya HTN Bipolar depression (on lithium/depakote) Admitted with apparent COPD exacerbation. P: empiric Zosyn/azithro/Tamiflu Pulm eval - discussed with Jorge Kendall MD Feb 26, 2018 22:10
[2018-02-26] MEDS: Azithromycin 250mg tab ORAL SCH (23:01)
[2018-02-26] MEDS ORDERED: Zolpidem 5mg tab ORAL PRN (23:30)
[2018-02-27] VITALS: BP 124/84
--- NOTE | 2018-02-27 | History and Physical Report ---
DATE OF ADMISSION: 02/26/2018 CHIEF COMPLAINT: Shortness of breath of several days' duration. HISTORY OF PRESENT ILLNESS: The patient is a 67-year-old man followed by me as an outpatient for HIV infection, which has historically been well controlled despite variable adherence. His major problems actually are emphysema secondary to smoking, hypertension, and mood disorder. The patient has had approximately one admission per year for COPD exacerbation mainly at [facility]. He is followed by psychologist and a psychiatrist. The patient was admitted through the [place] [facility] this evening with a brief history of increased shortness of breath. The patient was given breathing treatments with some improvement and chest x-ray was suspicious for infiltrates, according to the emergency room physician, Dr. Howard, and the patient is now admitted for further evaluation. PAST MEDICAL HISTORY: He had the usual childhood diseases. His adult medical illnesses are as mentioned above; his HIV infection has been long-standing, although his viral load has been undetectable recently. The patient was seen in the office by me last on January 23 of this year. At that time, urinalysis was normal. His CD4 count was 337 (13%). His hemoglobin was 12.9, platelet count 148,000. His cholesterol was 190. Basic metabolic panel was normal. His thyroid panel was normal. His viral load was undetectable. His Depakote level was 52. FAMILY HISTORY: Noncontributory. SOCIAL HISTORY: The patient is disabled. He has a good social support network. MEDICATIONS: Genvoya one tablet daily, lisinopril 40 mg once a day, zolpidem 10 mg once a day at bedtime as needed for sleep, lithium carbonate three 300 mg capsules nightly, hydrochlorothiazide 50 mg by mouth daily, Genvoya one tablet daily, albuterol inhaler, Atrovent inhaler, and Depakote 500 mg twice a day. ALLERGIES: No known drug allergies. REVIEW OF SYSTEMS: Denies fever. His cough has been more productive than usual lately. He has been short of breath. He denies nausea, vomiting, or diarrhea at this point. He does not have dysuria. He smokes cigarettes PHYSICAL EXAMINATION: Afebrile. WNWD male NAD Heent: nc/ neck: supple lungs: scattered rhonchi Abd: soft, n/t neuro: alert, oriented x 4 LABORATORY DATA: Pending. IMPRESSION: 1. Chronic obstructive pulmonary disease exacerbation. 2. Rule out community-acquired pneumonia. 3. Chronic obstructive pulmonary disease/emphysema. 4. Hypertension. 5. Bipolar disorder. 6. Long-standing human immunodeficiency virus infection. DISCUSSION: The patient is a 67-year-old man, who presents with a probable COPD exacerbation. We will treat him empirically for community-acquired pneumonia with azithromycin and Zosyn as he has complicated COPD. His HIV is well controlled. I have asked Dr. Mane Boggs to see the patient in pulmonary consultation. We will obtain a nasal swab for influenza. I believe the patient did get an influenza vaccine in the office when he saw me in January, but I am not certain of this to discrepancy in the medical chart; therefore we will treat him empirically with Tamiflu as well as the Zosyn and azithromycin. Further recommendations will be forthcoming as the initial database is completed. Jorge Delgadillo M.D. DR: YULISSA JOB#: [id number] CC: [id number]
[2018-02-27] MEDS ORDERED: Albuterol/Ipratropium 3ml neb HHN PRN (00:15)
[2018-02-27] MEDS: Albuterol/Ipratropium 3ml neb HHN SCH ×6 (02:31→23:00)
[2018-02-27] MEDS: Piperacillin/Tazobactam 4.5 GM in NS 110 ML IVPB SCH ×4 (03:25→21:15)
[2018-02-27 04:00] VITALS: BP 117/72
[2018-02-27 08:00] VITALS: BP_SYST 100; BP_SYST 135; BP_DIAS 58; BP_DIAS 75
[2018-02-27] MEDS: Depakote ER 500mg tab ORAL SCH ×2 (08:43→21:14)
[2018-02-27] MEDS: Oseltamivir 75mg cap ORAL SCH ×2 (08:44→17:32)
[2018-02-27] MEDS: Lisinopril 20mg tab ORAL SCH (08:44)
--- NOTE | 2018-02-27 10:16 | Diagnostic Imaging Report ---
Indication: Cough Technique: One view of the chest Comparison: 05/27/2017 Findings: Air cyst is again demonstrated at the right lung base. Previously demonstrated left basilar infiltrate and pleural fluid are no longer evident. Lungs and pleural spaces are currently clear. The heart size is borderline enlarged. The aorta is somewhat ectatic. Scarring is seen in the left upper lung. Hyperinflation is seen in both lung apices. Impression: No definite acute process COPD changes Previously demonstrated left lung parenchymal disease is no longer evident
[2018-02-27 12:00] VITALS: BP 140/73
--- NOTE | 2018-02-27 13:39 | Consultation ---
Consult Note Assessment/Plan dict Mane Boggs MD Feb 27, 2018 13:39
[2018-02-27] MEDS ORDERED: GENVOYA TABLET1 EACH PO (13:55)
[2018-02-27 16:00] VITALS: BP 142/72
--- NOTE | 2018-02-27 16:03 | Diagnostic Imaging Report ---
Indication: Shortness of breath Technique: 2 views of the chest Comparison: 02/26/2018 one view chest Findings: There is some scarring at the right lung apex. The lungs are otherwise clear. There is blunting of the posterior costophrenic sulci bilaterally. Heart is borderline enlarged, as previously. There is some scarring again demonstrated in the left upper lung. There is bullous change at the left lung apex. Right basilar air cyst seen on prior study is less visible on the current exam. Findings are unchanged Impression: COPD changes Bilateral posterior costophrenic angle blunting, probably on the basis of chronic pleural scarring or COPD changes, small effusions not completely excludable
--- NOTE | 2018-02-27 16:08 | General Progress Note ---
Progress Note Progress Note S: pt feels a bit better with less SOB O: VSS. Afebrile HEENT: nc/at Neck: supple Lungs: scattered crackles Cor: reg Abd: soft, n/t Labs Test 02/26/18 19:25 02/26/18 19:45 02/27/18 02:00 White Blood Count 7.5 K/UL (4.8-10.8) Red Blood Count 4.88 M/UL (4.70-6.10) Hemoglobin 13.8 G/DL (14.2-18.0) Hematocrit 42.2 % (42.0-52.0) Mean Corpuscular Volume 87 FL (80-99) Mean Corpuscular Hemoglobin 28.3 PG (27.0-31.0) Mean Corpuscular Hemoglobin Concent 32.8 G/DL (32.0-36.0) Red Cell Distribution Width 12.4 % (11.6-14.8) Platelet Count 194 K/UL (150-450) Mean Platelet Volume 8.5 FL (6.5-10.1) Neutrophils (%) (Auto) 67.6 % (45.0-75.0) Lymphocytes (%) (Auto) 24.2 % (20.0-45.0) Monocytes (%) (Auto) 6.9 % (1.0-10.0) Eosinophils (%) (Auto) 0.2 % (0.0-3.0) Basophils (%) (Auto) 1.1 % (0.0-2.0) Sodium Level 140 MMOL/L (136-145) Potassium Level 4.1 MMOL/L (3.5-5.1) Chloride Level 104 MMOL/L (98-107) Carbon Dioxide Level 28 MMOL/L (21-32) Anion Gap 8 mmol/L (5-15) Blood Urea Nitrogen 12 mg/dL (7-18) Creatinine 0.7 MG/DL (0.55-1.30) Estimat Glomerular Filtration Rate > 60 mL/min (>60) Glucose Level 81 MG/DL (74-106) Lactic Acid Level 1.00 mmol/L (0.4-2.0) Calcium Level 10.0 MG/DL (8.5-10.1) Total Bilirubin 0.6 MG/DL (0.2-1.0) Aspartate Amino Transf (AST/SGOT) 39 U/L (15-37) Alanine Aminotransferase (ALT/SGPT) 28 U/L (12-78) Alkaline Phosphatase 86 U/L (46-116) Troponin I 0.000 ng/mL (0.000-0.056) Pro-B-Type Natriuretic Peptide 257 pg/mL (0-125) Total Protein 8.9 G/DL (6.4-8.2) Albumin 3.5 G/DL (3.4-5.0) Globulin 5.4 g/dL Albumin/Globulin Ratio 0.6 (1.0-2.7) Lipase 66 U/L (73-393) Urine Color Yellow Urine Appearance Clear Urine pH 5 (4.5-8.0) Urine Specific [place] 1.020 (1.005-1.035) Urine Protein 1+ (NEGATIVE) Urine Glucose (UA) Negative (NEGATIVE) Urine Ketones 1+ (NEGATIVE) Urine Blood Negative (NEGATIVE) Urine Nitrite Negative (NEGATIVE) Urine Bilirubin Negative (NEGATIVE) Urine Urobilinogen Normal MG/DL (0.0-1.0) Urine Leukocyte Esterase Negative (NEGATIVE) Urine RBC 0-2 /HPF (0 - 0) Urine WBC 0-2 /HPF (0 - 0) Urine Squamous Epithelial Cells None /LPF (NONE/OCC) Urine Bacteria Few /HPF (NONE) A: 1) COPD exacerbation - Dr. Boggs's input appreciated 2) r/o CAP - this seems less likely given clinical course 3) HIV, well controlled 4) Bipolar Plan: 1) Continue zosyn for now 2) bronchodilators Jorge Delgadillo MD Feb 27, 2018 16:08
[2018-02-27] MEDS: GENVOYA ORAL SCH (17:32)
[2018-02-27 20:00] VITALS: BP 130/79
[2018-02-27] MEDS: Azithromycin 250mg tab ORAL SCH (21:15)
--- NOTE | 2018-02-27 22:45 | Consultation ---
DATE OF CONSULTATION: 02/27/2018 PULMONARY CONSULTATION HISTORY OF PRESENT ILLNESS: The patient is a very pleasant 67-year-old bipolar man who comes to the hospital with increasing cough and shortness of breath for several days. He had no high fever. He has butler sputum. He has no hemoptysis or chest pain. He has known pulmonary emphysema and has had recurrent exacerbations over many years time. He has continued to smoke, presently one-half pack per day, although he has been advised to quit. He has smoked up to one pack per day in the past, beginning at age 13. He has no history of lung cancer or asthma and no history of tuberculosis. PAST MEDICAL HISTORY: Includes: 1. Sacroiliac osteomyelitis as a child with multiple operations. 2. Alcoholism, presently down to one or two drinks per week. 3. Alcohol-related seizures. 4. Hypertension. 5. Human immunodeficiency virus, controlled on medication with no history of opportunistic infections or tumors. 6. Chronic obstructive pulmonary disease. 7. Bipolar disorder. ALLERGIES: None. MEDICATIONS: Reviewed and reconciled. Of note, he is on Symbicort and Combivent at home prior to admission in addition to HIV medications and hypertension medication and Depakote and lithium. REVIEW OF SYSTEMS: Otherwise unremarkable. PHYSICAL EXAMINATION: GENERAL: The patient is alert and responds appropriately. He states he is not short of breath at the present time. VITAL SIGNS: Stable. Blood pressure is 140/73, but was as high as 170/88 when he arrived. There is no high fever. He is thin with some muscle wasting. HEENT: The head is normocephalic. NECK: No jugular venous distention. CHEST: Decreased air entry with poor breath sounds and a few rhonchi are noted. CARDIAC: Rhythm is regular. Heart sounds are distant. ABDOMEN: Soft and nontender. Liver and spleen not enlarged. EXTREMITIES: No clubbing, cyanosis, or edema. DIAGNOSTIC DATA: Chest x-ray shows hyperinflation with right infrahilar haziness. A previous left base infiltrate and effusion have resolved compared to May 2017. There is scarring in the left upper lobe. IMPRESSION: 1. COPD exacerbation. 2. HIV, controlled on medication. 3. Hypertension. 4. Bipolar disorder. 5. Tobacco use disorder. 6. Seizure disorder. 7. Alcoholism. PLAN: The patient will continue on antibiotics ordered by Dr. Delgadillo. We will check a procalcitonin to stratify recommended treatment for possible pneumonia. Respiratory treatments have been ordered. I have advised the patient to quit smoking and nicotine patch was ordered. Thank you for asking me to see him in consultation. I appreciate the opportunity to work with this fam gentleman. Mane Boggs M.D. DR: FRANCINE JOB#: [id number] CC: Jorge Delgadillo M.D.
[2018-02-28] VITALS: BP 122/71
[2018-02-28] MEDS: Piperacillin/Tazobactam 4.5 GM in NS 110 ML IVPB SCH ×2 (03:00→09:58)
[2018-02-28] MEDS: Albuterol/Ipratropium 3ml neb HHN SCH ×6 (03:00→22:37)
[2018-02-28 04:00] VITALS: BP 129/81
[2018-02-28 08:00] VITALS: BP 133/80
--- NOTE | 2018-02-28 09:09 | Pulmonology Progress Note ---
Assessment/Plan Assessment/Plan 1. COPD exacerbation. 2. HIV, controlled on medication. 3. Hypertension. 4. Bipolar disorder. 5. Tobacco use disorder. 6. Seizure disorder. 7. Alcoholism. 8. pSVT episodes of rapid HR, suspect SVT to 160/min patient not symptomatic dc albuterol HHN; atrovent only less SOB wants to go home soon suggest cardiology eval notified Dr Delgadillo Subjective Constitutional: Denies: fever Respiratory: Reports: shortness of breath - less Allergies: Coded Allergies: No Known Allergies (Unverified , 06/07/12) Objective Last 24 Hour Vital Signs Date Time Temp Pulse Resp B/P (MAP) Pulse Ox O2 Delivery O2 Flow Rate FiO2 02/28/18 08:20 84 16 100 Room Air 21 02/28/18 08:11 82 18 95 Nasal Cannula 2.0 28 02/28/18 08:00 98.3 71 18 133/80 (97) 95 02/28/18 04:00 67 02/28/18 04:00 98.0 71 19 129/81 (97) 97 02/28/18 00:00 98.1 78 19 122/71 (88) 98 02/28/18 00:00 72 02/27/18 21:00 Nasal Cannula 2.0 02/27/18 20:10 80 16 100 Room Air 21 02/27/18 20:00 97.5 72 19 130/79 (96) 99 02/27/18 20:00 66 02/27/18 19:54 78 20 99 Nasal Cannula 2.0 28 02/27/18 16:24 88 16 100 Room Air 21 02/27/18 16:14 75 18 100 Nasal Cannula 2.0 28 02/27/18 16:00 65 02/27/18 16:00 97.0 60 19 142/72 (95) 98 02/27/18 12:00 63 02/27/18 12:00 97.3 61 21 140/73 (95) 98 02/27/18 11:30 Room Air 02/27/18 11:30 Room Air Intake and Output 02/27/18 02/28/18 18:59 06:59 Intake Total 800 ml Output Total 850 ml 1000 ml Balance -50 ml -1000 ml Intake Oral 800 ml Output Urine Total 850 ml 1000 ml # Voids 4 # Bowel Movements 1 General Appearance: no acute distress Respiratory/Chest: expiratory wheezing Cardiovascular: normal rate, regular rhythm Microbiology Date/Time Source Procedure Growth Status 02/26/18 19:40 Blood Blood Culture - Preliminary NO GROWTH AFTER 24 HOURS Resulted 02/26/18 19:25 Blood Blood Culture - Preliminary NO GROWTH AFTER 24 HOURS Resulted 02/27/18 02:00 Sputum Gram Stain - Final Resulted 02/27/18 02:00 Sputum Sputum Culture - Preliminary NORMAL UPPER RESPIRATORY LU[place] AT 24 ... Resulted 02/26/18 19:25 Nasal Nares Influenza Types A,B Antigen (NAE) - Final Complete 02/27/18 02:00 Back Gram Stain - Final Resulted 02/27/18 02:00 Back Wound Culture Pending Resulted 02/26/18 21:50 Rectum Received Current Medications Medications (Trade) Dose Ordered Sig/Michael Route PRN Reason Start Time Stop Time Status Last Admin Dose Admin Acetaminophen (Tylenol) 650 mg Q6H PRN ORAL Mild Pain/Temp > 100.5 02/26/18 23:30 03/28/18 23:29 Albuterol/ Ipratropium (Albuterol/ Ipratropium) 3 ml Q4HRT HHN 02/27/18 03:00 03/04/18 02:59 02/28/18 08:10 Albuterol/ Ipratropium (Albuterol/ Ipratropium) 3 ml Q4HRT PRN HHN Shortness of Breath 02/27/18 00:15 03/04/18 00:14 Azithromycin (Zithromax) 500 mg Q24H ORAL 02/26/18 22:00 03/05/18 21:59 02/27/18 21:15 Divalproex Sodium (Depakote ER) 500 mg EVERY 12 HOURS ORAL 02/27/18 09:00 03/29/18 08:59 02/27/18 21:14 Hydrochlorothiazide (Hydrodiuril) 50 mg DAILY ORAL 02/27/18 09:00 03/29/18 08:59 02/27/18 08:44 Lisinopril (Prinivil) 40 mg DAILY ORAL 02/27/18 09:00 03/29/18 08:59 02/27/18 08:44 [place] Carbonate ([place] Carbonate) 300 mg Q8H ORAL 02/27/18 00:00 03/29/18 00:00 02/28/18 00:56 Nicotine (Nicoderm) 1 patch Q24H TDERMAL 02/27/18 14:00 03/29/18 13:59 02/27/18 14:16 Oseltamivir Phosphate (Tamiflu) 75 mg TWICE A DAY ORAL 02/27/18 09:00 03/04/18 08:59 02/27/18 17:32 Patient Own Medication (Patient's Own Med) 1 ea DAILY ORAL 02/27/18 17:00 03/29/18 16:59 02/27/18 17:32 Piperacillin Sod/ Tazobactam Sod 4.5 gm/Sodium Chloride 110 ml @ 220 mls/hr Q6H IVPB 02/27/18 03:00 03/06/18 02:59 02/28/18 03:00 Zolpidem Tartrate (Ambien) 5 mg HSPRN PRN ORAL Insomnia 02/26/18 23:30 03/05/18 23:29 Mane Boggs MD Feb 28, 2018 09:09
[2018-02-28] MEDS ORDERED: Ipratropium 0.02% Inh Soln 2.5ml UD HHN PRN (09:15)
[2018-02-28] MEDS: GENVOYA ORAL SCH (09:48)
[2018-02-28] MEDS: Lisinopril 20mg tab ORAL SCH (09:49)
[2018-02-28] MEDS: Depakote ER 500mg tab ORAL SCH ×3 (09:50→21:09)
[2018-02-28] MEDS: Oseltamivir 75mg cap ORAL SCH (09:50)
[2018-02-28 12:00] VITALS: BP 130/85
--- NOTE | 2018-02-28 14:53 | Diagnostic Imaging Report ---
Indication: Shortness of breath Technique: 2 views of the chest Comparison: 02/27/2018 Findings: Bullous changes and scarring are seen in the bilateral upper lungs, left greater than right. Linear scarring is also seen in the left lung base. Lungs and pleural spaces are otherwise clear. The heart size is normal. Impression: COPD changes. No acute bony trauma
[2018-02-28 16:00] VITALS: BP 119/78
--- NOTE | 2018-02-28 16:34 | General Progress Note ---
Progress Note Progress Note S: feels better, still has spells of SOB O: VSS although pt noted to have intermittent SVT on rhythm strip (although in sinus on 12-lead) Afebrile Heent: nc/at Lungs: scattered rhonchi no wheezes Cor: reg rhythm not tachycardic Abd: soft Repeat CXR no changes Labs Test 02/26/18 19:25 02/26/18 19:45 02/27/18 02:00 White Blood Count 7.5 K/UL (4.8-10.8) Red Blood Count 4.88 M/UL (4.70-6.10) Hemoglobin 13.8 G/DL (14.2-18.0) Hematocrit 42.2 % (42.0-52.0) Mean Corpuscular Volume 87 FL (80-99) Mean Corpuscular Hemoglobin 28.3 PG (27.0-31.0) Mean Corpuscular Hemoglobin Concent 32.8 G/DL (32.0-36.0) Red Cell Distribution Width 12.4 % (11.6-14.8) Platelet Count 194 K/UL (150-450) Mean Platelet Volume 8.5 FL (6.5-10.1) Neutrophils (%) (Auto) 67.6 % (45.0-75.0) Lymphocytes (%) (Auto) 24.2 % (20.0-45.0) Monocytes (%) (Auto) 6.9 % (1.0-10.0) Eosinophils (%) (Auto) 0.2 % (0.0-3.0) Basophils (%) (Auto) 1.1 % (0.0-2.0) Sodium Level 140 MMOL/L (136-145) Potassium Level 4.1 MMOL/L (3.5-5.1) Chloride Level 104 MMOL/L (98-107) Carbon Dioxide Level 28 MMOL/L (21-32) Anion Gap 8 mmol/L (5-15) Blood Urea Nitrogen 12 mg/dL (7-18) Creatinine 0.7 MG/DL (0.55-1.30) Estimat Glomerular Filtration Rate > 60 mL/min (>60) Glucose Level 81 MG/DL (74-106) Lactic Acid Level 1.00 mmol/L (0.4-2.0) Calcium Level 10.0 MG/DL (8.5-10.1) Total Bilirubin 0.6 MG/DL (0.2-1.0) Aspartate Amino Transf (AST/SGOT) 39 U/L (15-37) Alanine Aminotransferase (ALT/SGPT) 28 U/L (12-78) Alkaline Phosphatase 86 U/L (46-116) Troponin I 0.000 ng/mL (0.000-0.056) Pro-B-Type Natriuretic Peptide 257 pg/mL (0-125) Total Protein 8.9 G/DL (6.4-8.2) Albumin 3.5 G/DL (3.4-5.0) Globulin 5.4 g/dL Albumin/Globulin Ratio 0.6 (1.0-2.7) Lipase 66 U/L (73-393) Urine Color Yellow Urine Appearance Clear Urine pH 5 (4.5-8.0) Urine Specific [place] 1.020 (1.005-1.035) Urine Protein 1+ (NEGATIVE) Urine Glucose (UA) Negative (NEGATIVE) Urine Ketones 1+ (NEGATIVE) Urine Blood Negative (NEGATIVE) Urine Nitrite Negative (NEGATIVE) Urine Bilirubin Negative (NEGATIVE) Urine Urobilinogen Normal MG/DL (0.0-1.0) Urine Leukocyte Esterase Negative (NEGATIVE) Urine RBC 0-2 /HPF (0 - 0) Urine WBC 0-2 /HPF (0 - 0) Urine Squamous Epithelial Cells None /LPF (NONE/OCC) Urine Bacteria Few /HPF (NONE) A: 1) COPD exacerbation - no evidence of infection 2) Hypertension 3) Bipolar depression 4) new diagnosis of intermittent SVT - this may be related to his COPD treatment P: 1) Bronchodilator management per Dr. Boggs 2) I called Dr. Daron Kwon this morning and asked him to see pt in cardiology consultation; he said he would ask Dr. Sloane Coto to see him 3) continue to observe off Zosyn/Tamiflu Jorge Delgadillo MD Feb 28, 2018 16:34
--- NOTE | 2018-02-28 19:48 | Consultation ---
Consult Note Consult Note Cardiology for Dr. Kwon/ Cardiac EP Full consult dictated # [id number] 67 yo m HIV+, w/ HTN, COPD and bipolar disorder adm w/ COPD exacerbation. Today , had 2 episodes of rapid HR, to 140-150s on telemetry. These occurred during coughing spells. Review of rhythm strips show narrow complex tachycardia w/ nl MO interval and gradual slowing most consistent w/ sinus tachycardia. This is likely due to cough, infection, and metabolic factors - does not require specific antiarrhythmic treatment. Rec: continue COPD rx per Dr. Boggs. Continue telemetry monitoring. Will check ECHO, as pt w/ cardiac risk factors - r/o cardiomyopathy. Sloane Coto MD Feb 28, 2018 19:48
[2018-02-28 20:00] VITALS: BP 115/76
[2018-02-28] MEDS: Azithromycin 250mg tab ORAL SCH (21:09)
--- NOTE | 2018-02-28 22:30 | Consultation ---
DATE OF CONSULTATION: 02/28/2018 CARDIOLOGY CONSULTATION REASON FOR CONSULTATION: Possible supraventricular tachycardia. HISTORY OF PRESENT ILLNESS: The patient is a very pleasant 67-year-old man, human immunodeficiency virus positive with history of hypertension and chronic obstructive pulmonary disease, who was admitted with a 1-week history of increasing shortness of breath, cough productive of yellow sputum, and tactile fevers. He has been treated for chronic obstructive pulmonary disease exacerbation. Today, he had two episodes of being treated for chronic obstructive pulmonary disease exacerbation with improvement this morning and this afternoon, however, when he was walking in his room and had coughing spells, developed rapid heart rates up to the 140s to 150s. There was concern for possible SVT and Cardiology evaluation was requested. The patient himself reports no previous history of arrhythmia. He has not had palpitations, dizziness, lightheadedness, or syncope. PAST MEDICAL HISTORY: As noted above. History of hypertension, human immunodeficiency virus positive, bipolar disorder, seizures, and osteomyelitis (childhood). MEDICATIONS: Atrovent nebulizer q.4 h. p.r.n., nicotine patch one patch q.24 hours, hydrochlorothiazide 50 mg daily, Prinivil 40 mg daily, Depakote 500 mg q.12 hours, albuterol ipratropium nebulizer q.4 h. p.r.n., lithium 300 mg q.8 hours, Ambien 5 mg at bedtime p.r.n., Tylenol p.r.n., and azithromycin 500 mg q.24 hours. ALLERGIES: No known drug allergies. SOCIAL HISTORY: The patient smokes 1/2 pack per day. He has no current history of alcohol use and no drug use. PHYSICAL EXAMINATION: VITAL SIGNS: Blood pressure is 119/78, pulse 82 and regular, respirations 18, afebrile, and oxygen saturation 95% on room air. HEENT: Normocephalic and atraumatic. Pupils are equal, round, and reactive to light. Sclerae anicteric. Oral mucosa are moist. NECK: Supple. There is no jugular venous distention. No thyromegaly. Carotid pulses are 2+ bilateral without bruits. LUNGS: Coarse breath sounds and bilateral scattered rhonchi. No wheezes or rales. HEART: Distant heart sounds. Regular S1, S2 with no murmurs, rubs, S3, or S4. ABDOMEN: Soft and nontender. Liver edge palpable at the costal margin. No masses. EXTREMITIES: No cyanosis, clubbing, or edema. Pulses 2+ and symmetric. DIAGNOSTIC DATA: EKG shows sinus rhythm at a rate of 90 beats per minute, axis +40 degrees. Normal intervals. Possible right atrial enlargement. Nonspecific T-wave changes. Telemetry shows a narrow complex regular tachycardia, rate of 143 beats per minute, which appears to slow gradually. The onset of this tachycardia is not recorded. Chest x-ray shows hyperinflated lungs, bullous changes at the apices, and no infiltrates. LABORATORY AND DIAGNOSTIC DATA: Hemoglobin 13.8, white blood count 7500, and platelets 194,000. Sodium 140, potassium 4.1, BUN 12, and creatinine 0.7. Troponin 0. Natriuretic peptide 257. PLAN AND ASSESSMENT: The patient is a 67-year-old man, human immunodeficiency virus positive with history of bipolar disorder, hypertension, and chronic obstructive pulmonary disease was admitted with a chronic obstructive pulmonary disease exacerbation. In this setting, he is noted to have episodes of narrow complex tachycardia, which appeared to be sinus tachycardia as there are visible P waves before each QRS and the rhythm appears to slow gradually. The onset is not recorded however and there is a small possibility. This could be an atrial tachycardia. However in the absence of symptoms and with the findings as noted, I strongly suspect this is a sinus tachycardia. As he does have cardiac risk factors, I would favor obtaining an echo to assess left ventricular function and wall motion. We would continue telemetry monitoring as his heart rate is currently normal and he is asymptomatic from a cardiac standpoint, I would not favor treatment with any medications for these previous rapid heart rate. Thank you for allowing me to see him in Cardiology and electrophysiology consultation. I will follow up his echo results and continue to follow him with you. Sloane Coto M.D. DR: CHINMAY JOB#: [id number] CC:
[2018-03-01] VITALS: BP 115/83
[2018-03-01] MEDS: Albuterol/Ipratropium 3ml neb HHN SCH ×2 (03:00→07:00)
[2018-03-01 04:00] VITALS: BP 111/89
[2018-03-01 07:12] LABS: ANION GAP 6 mmol/L (5-15); BLOOD UREA NITROGEN 17 mg/dL (7-18); CALCIUM 10.8 MG/DL (8.5-10.1); CARBON DIOXIDE 31 MMOL/L (21-32); CHLORIDE 103 MMOL/L (98-107); CREATININE 1.1 MG/DL (0.55-1.30); POTASSIUM 4.6 MMOL/L (3.5-5.1); SODIUM 140 MMOL/L (136-145)
[2018-03-01 07:19] LABS: HEMATOCRIT 46.5 % (42.0-52.0); HEMOGLOBIN 15.2 G/DL (14.2-18.0); LYMPHOCYTES % (AUTO) 37.7 % (20.0-45.0); MEAN CORPUSCULAR VOLUME 87 FL (80-99); NEUTROPHILS % (AUTO) 53.3 % (45.0-75.0); PLATELET COUNT 237 K/UL (150-450); RED BLOOD COUNT 5.33 M/UL (4.70-6.10); RED CELL DISTRIBUTION WIDTH 12.7 % (11.6-14.8); WHITE BLOOD COUNT 7.9 K/UL (4.8-10.8)
[2018-03-01 08:00] VITALS: BP 113/80
--- NOTE | 2018-03-01 08:11 | Pulmonology Progress Note ---
Assessment/Plan Assessment/Plan 1. COPD exacerbation. 2. HIV, controlled on medication. 3. Hypertension. 4. Bipolar disorder. 5. Tobacco use disorder. 6. Seizure disorder. 7. Alcoholism. 8. pSVT patient not symptomatic atrovent only dc duo neb check ra sat monitor for arrhythmia cxr negative for infiltrate dc planning Subjective Constitutional: Reports: no symptoms HEENT: Repors: no symptoms Respiratory: Reports: no symptoms Cardiovascular: Reports: palpitations Gastrointestinal/Abdominal: Reports: no symptoms Genitourinary: Reports: no symptoms Allergies: Coded Allergies: No Known Allergies (Unverified , 06/07/12) Subjective NOTED Again wtih arrhythmia while coughing no cp nv or bleeding on RA comfortable no fever oob toelrating po Objective Last 24 Hour Vital Signs Date Time Temp Pulse Resp B/P (MAP) Pulse Ox O2 Delivery O2 Flow Rate FiO2 03/01/18 08:00 98.6 110 20 113/80 (91) 98 03/01/18 07:02 Room Air 21 03/01/18 07:02 Room Air 21 03/01/18 04:00 87 03/01/18 04:00 97.3 81 18 111/89 (96) 94 03/01/18 00:00 98.7 88 18 115/83 (94) 94 03/01/18 00:00 94 02/28/18 21:00 Nasal Cannula 2.0 02/28/18 20:00 94 02/28/18 20:00 98.4 89 18 115/76 (89) 95 02/28/18 19:49 80 18 95 Room Air 21 02/28/18 19:38 78 20 93 Room Air 21 02/28/18 16:00 98.4 82 18 119/78 (92) 95 02/28/18 16:00 81 02/28/18 15:35 80 20 99 Room Air 21 02/28/18 15:24 79 20 96 Room Air 21 02/28/18 12:00 98.3 74 18 130/85 (100) 95 02/28/18 12:00 76 02/28/18 11:33 82 18 99 Room Air 21 02/28/18 11:25 78 18 97 Nasal Cannula 2.0 28 02/28/18 09:49 133/80 02/28/18 09:00 Nasal Cannula 2.0 02/28/18 08:20 84 16 100 Room Air 21 Intake and Output 02/28/18 03/01/18 19:00 07:00 Intake Total 360 ml Output Total 250 ml Balance 110 ml Intake Oral 360 ml Output Urine Total 250 ml # Voids 2 2 General Appearance: WD/WN Respiratory/Chest: lungs clear, normal breath sounds Cardiovascular: normal rate, regular rhythm Abdomen: soft, non tender, no organomegaly Neurologic/Psychiatric: no motor/sensory deficits, alert, oriented x 3 Microbiology Date/Time Source Procedure Growth Status 02/26/18 19:40 Blood Blood Culture - Preliminary NO GROWTH AFTER 24 HOURS Resulted 02/26/18 19:25 Blood Blood Culture - Preliminary NO GROWTH AFTER 24 HOURS Resulted 02/27/18 02:00 Sputum Gram Stain - Final Complete 02/27/18 02:00 Sputum Sputum Culture - Final NORMAL UPPER RESPIRATORY [place] AT 48 ... Complete 02/26/18 19:25 Nasal Nares Influenza Types A,B Antigen (NAE) - Final Complete 02/27/18 02:00 Back Gram Stain - Final Resulted 02/27/18 02:00 Back Wound Culture - Preliminary NO GROWTH AFTER 48 HOURS Resulted 02/26/18 21:50 Rectum - Final NO CARBAPENEM-RESISTANT ENTEROBACTERI... Complete 02/26/18 21:50 Rectum VRE Culture - Final NO VANCOMYCIN RESISTANT ENTEROCOCCUS ... Complete Laboratory Tests 03/01/18 05:20: White Blood Count 7.9, Red Blood Count 5.33, Hemoglobin 15.2, Hematocrit 46.5, Mean Corpuscular Volume 87, Mean Corpuscular Hemoglobin 28.5, Mean Corpuscular Hemoglobin Concent 32.6, Red Cell Distribution Width 12.7, Platelet Count 237, Mean Platelet Volume 7.8, Neutrophils (%) (Auto) 53.3, Lymphocytes (%) (Auto) 37.7, Monocytes (%) (Auto) 7.0, Eosinophils (%) (Auto) 1.0, Basophils (%) (Auto ) 1.0, Sodium Level 140, Potassium Level 4.6, Chloride Level 103, Carbon Dioxide Level 31, Anion Gap 6, Blood Urea Nitrogen 17, Creatinine 1.1, Estimat Glomerular Filtration Rate > 60, Glucose Level 86, Calcium Level 10.8H, Valproic Acid (Depakene) Level 40L Current Medications Medications (Trade) Dose Ordered Sig/Micheal Route PRN Reason Start Time Stop Time Status Last Admin Dose Admin Acetaminophen (Tylenol) 650 mg Q6H PRN ORAL Mild Pain/Temp > 100.5 02/26/18 23:30 03/28/18 23:29 Albuterol/ Ipratropium (Albuterol/ Ipratropium) 3 ml Q4HRT HHN 02/27/18 03:00 03/04/18 02:59 02/28/18 19:36 Azithromycin (Zithromax) 500 mg Q24H ORAL 02/26/18 22:00 03/05/18 21:59 02/28/18 21:09 Divalproex Sodium (Depakote ER) 500 mg EVERY 12 HOURS ORAL 02/27/18 09:00 03/29/18 08:59 02/28/18 21:09 Hydrochlorothiazide (Hydrodiuril) 50 mg DAILY ORAL 02/27/18 09:00 03/29/18 08:59 02/28/18 09:49 Ipratropium [place] (Atrovent) 500 mcg Q4H PRN HHN Shortness of Breath 02/28/18 09:15 03/05/18 09:14 Lisinopril (Prinivil) 40 mg DAILY ORAL 02/27/18 09:00 03/29/18 08:59 02/28/18 09:49 [place] Carbonate ([place] Carbonate) 300 mg Q8H ORAL 02/27/18 00:00 03/29/18 00:00 02/28/18 23:58 Nicotine (Nicoderm) 1 patch Q24H TDERMAL 02/27/18 14:00 03/29/18 13:59 02/28/18 13:48 Patient Own Medication (Patient's Own Med) 1 ea DAILY ORAL 02/27/18 17:00 03/29/18 16:59 02/28/18 09:48 Zolpidem Tartrate (Ambien) 5 mg HSPRN PRN ORAL Insomnia 02/26/18 23:30 03/05/18 23:29 02/28/18 21:09 Frida Henriquez DO Mar 01, 2018 08:11
[2018-03-01] MEDS: Depakote ER 500mg tab ORAL SCH (08:52)
[2018-03-01] MEDS: Lisinopril 20mg tab ORAL SCH (08:52)
[2018-03-01] MEDS: GENVOYA ORAL SCH (08:53)
[2018-03-01] MEDS ORDERED: NICOTINE1 EAC2 TDERMAL (11:27)
[2018-03-01] MEDS ORDERED: DIVALPROEX SOD500 M2 ORAL (11:27)
--- NOTE | 2018-03-01 11:39 | Discharge Summary ---
Discharge Summary Discharge Summary _ Discharge summary dictated #[id number] Pt doing well, stable for discharge home. Pulmonary and cardiology consultations appreciated. Jorge Delgadillo MD Mar 01, 2018 11:39
[2018-03-01 12:00] VITALS: BP 124/87
--- NOTE | 2018-03-01 14:05 | Cardiology Progress Note ---
Assessment/Plan Problem List: (1) HIV disease (2) Psychiatric disorder (3) HTN (hypertension) Status: stable, progressing Status Narrative Mr. Aquino is stable. His HRs are controlled, on telemetry His ECHO today (prelim report) shows an EF of 40-45% , global hypokinesis. There is moderate pulm hypertension, w/ PA pressure 45-50. Assessment/Plan Continue lisinopril for afterload reduction. Continue hct Consider addition of low dose coreg 3.125 mg bid. Followup as outpt - consider evaluation for ischemia when bronchitis has cleared - outpt stress test Subjective ROS Limited/Unobtainable: No Subjective Cardiology for Dr. Kwon Mr Aquino feels well overall; cough is improving. He has no chest pain or palpitations. No dyspnea Objective Last 24 Hour Vital Signs Date Time Temp Pulse Resp B/P (MAP) Pulse Ox O2 Delivery O2 Flow Rate FiO2 03/01/18 12:00 97.0 102 20 124/87 (99) 99 03/01/18 09:00 Nasal Cannula 2.0 Nasal Cannula 2.0 03/01/18 08:52 113/80 03/01/18 08:00 98.6 110 20 113/80 (91) 98 03/01/18 08:00 97 03/01/18 07:02 Room Air 21 03/01/18 07:02 Room Air 21 03/01/18 04:00 87 03/01/18 04:00 97.3 81 18 111/89 (96) 94 03/01/18 00:00 98.7 88 18 115/83 (94) 94 03/01/18 00:00 94 02/28/18 21:00 Nasal Cannula 2.0 02/28/18 20:00 94 02/28/18 20:00 98.4 89 18 115/76 (89) 95 02/28/18 19:49 80 18 95 Room Air 21 02/28/18 19:38 78 20 93 Room Air 21 02/28/18 16:00 98.4 82 18 119/78 (92) 95 02/28/18 16:00 81 02/28/18 15:35 80 20 99 Room Air 21 02/28/18 15:24 79 20 96 Room Air 21 General Appearance: WD/WN, alert, thin EENT: PERRL/EOMI Neck: supple, normal inspection, no JVD Rhythm: NSR Cardiovascular: normal rate, regular rhythm, no gallop/murmur Respiratory/Chest: lungs clear, normal breath sounds, rhonchi - bilaterally, other - scattered rhonchi bilat Abdomen: non tender, soft Extremities: non-tender, no swelling Neurologic: alert, oriented x 3 Intake and Output 02/28/18 03/01/18 18:59 06:59 Intake Total 360 ml Output Total 250 ml Balance 110 ml Intake Oral 360 ml Output Urine Total 250 ml # Voids 2 2 Laboratory Tests Test 03/01/18 05:20 White Blood Count 7.9 K/UL (4.8-10.8) Red Blood Count 5.33 M/UL (4.70-6.10) Hemoglobin 15.2 G/DL (14.2-18.0) Hematocrit 46.5 % (42.0-52.0) Mean Corpuscular Volume 87 FL (80-99) Mean Corpuscular Hemoglobin 28.5 PG (27.0-31.0) Mean Corpuscular Hemoglobin Concent 32.6 G/DL (32.0-36.0) Red Cell Distribution Width 12.7 % (11.6-14.8) Platelet Count 237 K/UL (150-450) Mean Platelet Volume 7.8 FL (6.5-10.1) Neutrophils (%) (Auto) 53.3 % (45.0-75.0) Lymphocytes (%) (Auto) 37.7 % (20.0-45.0) Monocytes (%) (Auto) 7.0 % (1.0-10.0) Eosinophils (%) (Auto) 1.0 % (0.0-3.0) Basophils (%) (Auto) 1.0 % (0.0-2.0) Sodium Level 140 MMOL/L (136-145) Potassium Level 4.6 MMOL/L (3.5-5.1) Chloride Level 103 MMOL/L (98-107) Carbon Dioxide Level 31 MMOL/L (21-32) Anion Gap 6 mmol/L (5-15) Blood Urea Nitrogen 17 mg/dL (7-18) Creatinine 1.1 MG/DL (0.55-1.30) Estimat Glomerular Filtration Rate > 60 mL/min (>60) Glucose Level 86 MG/DL (74-106) Calcium Level 10.8 MG/DL (8.5-10.1) H Valproic Acid (Depakene) Level 40 MCG/ML (50-100) L Microbiology Date/Time Source Procedure Growth Status 02/26/18 19:40 Blood Blood Culture - Preliminary NO GROWTH AFTER 48 HOURS Resulted 02/26/18 19:25 Blood Blood Culture - Preliminary NO GROWTH AFTER 48 HOURS Resulted 02/27/18 02:00 Sputum Gram Stain - Final Complete 02/27/18 02:00 Sputum Sputum Culture - Final NORMAL UPPER RESPIRATORY LUCHO AT 48 ... Complete 02/26/18 21:50 Nasal Nares MRSA Culture - Final NO METHICILLIN RESISTANT STAPH AUREUS... Complete 02/26/18 19:25 Nasal Nares Influenza Types A,B Antigen (NAE) - Final Complete 02/27/18 02:00 Back Gram Stain - Final Resulted 02/27/18 02:00 Back Wound Culture - Preliminary NO GROWTH AFTER 48 HOURS Resulted 02/26/18 21:50 Rectum - Final NO CARBAPENEM-RESISTANT ENTEROBACTERI... Complete 02/26/18 21:50 Rectum VRE Culture - Final NO VANCOMYCIN RESISTANT ENTEROCOCCUS ... Complete Sloane Coto MD Mar 01, 2018 14:05
--- NOTE | 2018-03-01 14:45 | Discharge Summary ---
DATE OF ADMISSION: 02/26/2018 DATE OF DISCHARGE: 03/01/2018 DISCHARGE DIAGNOSES: 1. COPD exacerbation. 2. Chronic smoking history. 3. HIV infection, intermittently well controlled. 4. Bipolar disorder. 5. Intermittent supraventricular tachycardia associated with coughing. HISTORY OF PRESENT ILLNESS AND HOSPITAL COURSE: The patient is a 67-year-old man followed by me as an outpatient for HIV infection, which when he decides to take his medicines regularly has been well controlled. His CD4 count has been in the 300 to 400s. He stated that four days prior to admission, he began noticing increased shortness of breath consistent with previous episodes of COPD exacerbation that he has experienced because he was working in a new job. He did not want to come in, but eventually presented to the emergency room on 02/26/2018 and was noted. The patient had appropriate studies. Sputum culture showed normal keila. Chest x-ray showed COPD changes, but no acute infiltrates. Of note was that he had two episodes of supraventricular tachycardia with a regular rate of about 140 captured on rhythm strip. The patient was seen by Dr. Sloane Coto, in Cardiology/EP consultation. Dr. Coto, felt that the episodes were probably related to comorbid conditions intrinsic cardiac pathology and the treatment of the former would help to prevent further episodes. The patient was also seen in consultation by Dr. Mane Boggs, and I encouraged the patient to follow up with Dr. Boggs, in Pulmonary consultation as an outpatient. Dr. Alcantara, ordered nicotine patch to try to help the patient stopping smoking. DISCHARGE MEDICATIONS: Genvoya one tablet daily, lisinopril 20 mg a day, Depakote 500 mg twice a day, and lithium 900 mg once a day. The patient will take his bronchodilators at home. FOLLOWUP: Followup will be at the office in the next week or two with me and also with Dr. Boggs. The patient will have a 2D echocardiogram before he leaves the hospital today. All questions answered by the patient were addressed. The patient's discharge diet is regular and his condition is stable. Jorge Delgadillo M.D. : [facility]A JOB#: [id number] CC:
[2018-03-01] MEDS ORDERED: Tubing IV Secondary IV ONE (15:53)
== END 2018-03-01 15:54 | disposition home or self-care (01) | DRG 191 ==
LOC: EMR 19:32 → 2E 20:28 → EDBEDREQ 21:27
DX: J44.1 Chronic obstructive pulmonary disease with (acute) exacerbation (principal); B20 Human immunodeficiency virus [HIV] disease; I47.1 Supraventricular tachycardia; I10 Essential (primary) hypertension; F31.9 Bipolar disorder, unspecified; F17.200 Nicotine dependence, unspecified, uncomplicated; F10.20 Alcohol dependence, uncomplicated; G40.909 Epilepsy, unspecified, not intractable, without status epilepticus
CPT/HCPCS: 36415; 71045; 71046; 80048; 80053; 80164; 81003; 82164; 83605; 83690; 83880; 84484; 85025; 86710; 87040; 87070; 87081; 87205; 93005; 93306; 94640; 94664; 96365; 96375; 99285; J7620

== ENCOUNTER 2018-12-21 19:18 | Emergency (ER) | payer BC, OTHER ==
[~2018-12-21] VITALS: Ht 185.4 cm; Wt 54.4 kg
[~2018-12-21 19:18] MED LIST changes: +DIVALPROEX SOD500 M2 ORAL; +GENVOYA TABLET1 EACH PO; +LISINOPRIL5 MG ORAL; +NICOTINE1 EAC2 TDERMAL
--- NOTE | 2018-12-21 19:18 | NUR ---
ED Nurse Note: Patient brought in by ambulance RA [id number], bystanders called [employer] for "talking to a razor" and bizzare behaviour. officer MIGUEL [id number] from [employer] by the bedside, reporting that patient is not on [id number] hold. patient may be discharged once medically cleared. patient now c/o headache, eye pain. Pt stated pain in under his LT eye but vision is intact. patient is alert awake ambulatory steady gait, breathing unlabored and even, speaking in full sentences.
[2018-12-21 19:20] VITALS: BP 138/77
--- NOTE | 2018-12-21 19:29 | NUR ---
HAND-OFF: Report given to SJ HILLMAN. patient stable in chair.
--- NOTE | 2018-12-21 19:30 | Emergency Room Report ---
History of Present Illness General Chief Complaint: Pain Present Illness HPI 68-year-old male with history of bipolar disorder, seizure disorder with last seizure being 1 year ago brought in by employees to the mental health facility for medical clearance. Patient denies any pain or any discomfort and only requests a refill of his medication. Denies chest pain, shortness of breath, palpitation, abdominal pain, nausea vomiting. Reports that he has been having pain in his left ear for years however denies any pain at this time. Reports that he has been told by his psychiatrist in the past is secondary to his medications. Patient is requesting a refill on his Depakote, lithium, hydrochlorothiazide, lisinopril. Reports that he has an appointment with his psychiatrist this coming Saturday. Suicidal and homicidal ideation. (Denise Davila) Allergies: Coded Allergies: No Known Allergies (Unverified , 06/07/12) Patient History Past Medical History: see triage record Past Surgical History: unable to obtain Pertinent Family History: none Immunizations: UTD Reviewed Nursing Documentation: PMH: Agreed; PSxH: Agreed (Denise Davila) Nursing Documentation-PMH Hx Hypertension: Yes Hx COPD: Yes - emphysema Hx Neurological Problems: No Hx Seizures: Yes (Denise Davila) Review of Systems All Other Systems: negative except mentioned in HPI (Denise Davila) Physical Exam Vital Signs Date Time Temp Pulse Resp B/P (MAP) Pulse Ox O2 Delivery O2 Flow Rate FiO2 12/21/18 19:06 98.2 86 16 140/90 (107) 98 Room Air Sp02 EP Interpretation: reviewed, normal General Appearance: no apparent distress, alert, GCS 15, non-toxic Head: normocephalic, atraumatic Eyes: bilateral eye normal inspection, bilateral eye PERRL ENT: hearing grossly normal, normal pharynx, no angioedema, normal voice Neck: full range of motion, supple/symm/no masses Respiratory: chest non-tender, lungs clear, normal breath sounds, speaking full sentences Cardiovascular #1: regular rate, rhythm, no edema, no murmur Gastrointestinal: normal bowel sounds, non tender, soft, non-distended, no guarding, no rebound Musculoskeletal: back normal, gait/station normal, normal range of motion, non- tender Neurologic: alert, oriented x3, responsive, motor strength/tone normal, sensory intact, speech normal Psychiatric: judgement/insight normal, memory normal, mood/affect normal, no suicidal/homicidal ideation Skin: no rash Lymphatic: no adenopathy (Denise Davila) Medical Decision Making PA Attestation All my diagnosis and treatment plans were reviewed ad discussed with my supervising physician Dr. Russell (Denise Davial) Medicare Attestation The history of Ar Aquino has been reviewed and management options for him have been examined and discussed by Farrukh Russell. I have personally examined and interviewed the patient. (Farrukh Russell MD) Diagnostic Impression: Primary Impression: Medication refill Additional Impression: Encounter for medical clearance for patient hold ER Course 68-year-old male with history of bipolar disorder, seizure disorder with last seizure being 1 year ago brought in by employees to the mental health facility for medical clearance. Patient denies any pain or any discomfort and only requests a refill of his medication. Denies chest pain, shortness of breath, palpitation, abdominal pain, nausea vomiting. Reports that he has been having pain in his left ear for years however denies any pain at this time. Reports that he has been told by his psychiatrist in the past is secondary to his medications. Patient is requesting a refill on his Depakote, lithium, hydrochlorothiazide, lisinopril. Reports that he has an appointment with his psychiatrist this coming Saturday. Suicidal and homicidal ideation. Ddx considered but are not limited to: generalized anxiety disorder, panic attack, depression with psycotic featurs, bipolar disorder, drug overdose Vital signs: are WNL, pt. is afebrile H&PE are most consistent with: Medication refill encounter for medical clearance the patient ORDERS: Depakote hydrochlorothiazide, lisinopril, lithium ED INTERVENTIONS: None required at this time. DISCHARGE: At this time pt. is stable for d/c to home. Will provide printed patient care instructions, and any necessary prescriptions. Care plan and follow up instructions have been discussed with the patient prior to discharge. Patient was medically cleared to go back to psychiatric facility also follow with psychiatrist (Denise Davila) Last Vital Signs Date Time Temp Pulse Resp B/P (MAP) Pulse Ox O2 Delivery O2 Flow Rate FiO2 12/21/18 19:06 98.2 86 16 140/90 (107) 98 Room Air (Denise Davila) Disposition: XFER TO PSYCH HOSP/UNIT Condition: Stable Scripts Lisinopril* (LISINOPRIL*) 40 Mg Tablet 40 MG ORAL DAILY for 7 Days, #7 TAB Prov: Denise Davila 12/21/18 Hydrochlorothiazide* (HYDROCHLOROTHIAZIDE*) 50 Mg Tablet 50 MG ORAL DAILY for 7 Days, #7 TAB Prov: Denise Davila 12/21/18 [place] Carbonate* (LITHIUM*) 300 Mg Capsule 300 MG ORAL EVERY 8 HOURS for 7 Days, #21 CAP 0 Refills Prov: Denise Davila 12/21/18 Divalproex Sodium (Depakote) 500 Mg Tablet.dr 500 MG PO BID for 7 Days, #14 TAB Prov: Denise Davila 12/21/18 Patient Instructions: Medicine Refill at the Emergency Department Denise Davila Dec 21, 2018 19:30 Farrukh Russell MD Dec 22, 2018 19:22
[2018-12-21] MEDS ORDERED: HYDROCHLOROTHIA50 MG ORAL (19:33)
[2018-12-21] MEDS ORDERED: DEPAKOTE500 MG PO (19:33)
[2018-12-21] MEDS ORDERED: LISINOPRIL40 MG ORAL (19:33)
[2018-12-21] MEDS ORDERED: LITHIUM CARBON300 MG ORAL (19:33)
[2018-12-21 19:46] VITALS: BP 129/80
--- NOTE | 2018-12-21 19:46 | NUR ---
ER DISCHARGE NOTE: Patient is cleared to be discharged per PA, pt is aox4, on room air, with stable vital signs. pt was given dc and prescription instructions, pt was able to verbalize understanding, pt id band removed. pt is able to ambulate with steady gait. pt took all belongings.
== END 2018-12-21 19:46 ==
LOC: EDBD 19:18 → EMR 19:46
DX: F31.9 Bipolar disorder, unspecified (principal); G40.909 Epilepsy, unspecified, not intractable, without status epilepticus; J44.9 Chronic obstructive pulmonary disease, unspecified; I10 Essential (primary) hypertension; Z76.0 Encounter for issue of repeat prescription; R45.851 Suicidal ideations; R45.850 Homicidal ideations
CPT/HCPCS: 99282

== ENCOUNTER 2018-12-24 15:34 | Emergency (ER) | payer BC, OTHER ==
[~2018-12-24] VITALS: Ht 185.4 cm; Wt 77.1 kg
[~2018-12-24 15:34] MED LIST changes: +HYDROCHLOROTHIA50 MG ORAL; +LISINOPRIL40 MG ORAL; +LITHIUM CARBON300 MG ORAL
--- NOTE | 2018-12-24 15:42 | NUR ---
ED Nurse Note: PT NOT READY TO BE SEEN YET. WILL LET REGISTRATION KNOW WHEN HE IS READY.
--- NOTE | 2018-12-24 15:45 | NUR ---
ED Nurse Note: PT STATES HE IS WAITING TO HEAR BACK FROM HIS PRIMARY DOCTOR BEFORE REGISTERING INTO ER.
[2018-12-24] MEDS ORDERED: LITHIUM CARBON300 MG ORAL (16:12)
[2018-12-24] MEDS ORDERED: DEPAKOTE500 MG PO (16:12)
[2018-12-24] MEDS ORDERED: LISINOPRIL40 MG ORAL (16:12)
[2018-12-24] MEDS ORDERED: HYDROCHLOROTHIA50 MG ORAL (16:12)
[2018-12-24 16:17] VITALS: BP 137/87
[2018-12-24 16:18] VITALS: BP 137/87
--- NOTE | 2018-12-24 16:19 | NUR ---
ED Nurse Note: isael hernandez done no nsg orders
--- NOTE | 2018-12-24 16:20 | NUR ---
ED Nurse Note: Pt cleared by health care Provider for discharge. DC instructions/prescription was given and explained to pt and verbalized understanding of teachings. All medical deviecs such as ID band removed. Pt is AAO x4, ambulatory and left with all personal belongings.
--- NOTE | 2018-12-24 19:13 | Emergency Room Report ---
History of Present Illness General Chief Complaint: Medication Refill Source: Patient Present Illness HPI 68-year-old male presents ED for evaluation. Patient presents for medication refill. States he was prescribed multiple medications a few days ago in the ED but states those medications prescriptions were left in his house and he was locked out. States he is staying with a friend. States the medications include some BP meds and some psychiatric meds. States he feels fine. Denies hearing voices. Denies chest pain or shortness of breath. No other aggravating relieving factors. Denies any other associated symptoms Allergies: Coded Allergies: No Known Allergies (Unverified , 06/07/12) Patient History Past Medical History: HTN, COPD, psych hx Pertinent Family History: none Social History: Denies: smoking, alcohol use, drug use Immunizations: UTD Reviewed Nursing Documentation: PMH: Agreed; PSxH: Agreed Nursing Documentation-PMH Hx Hypertension: Yes Hx COPD: Yes - emphysema Hx Neurological Problems: No Hx Seizures: Yes Review of Systems All Other Systems: negative except mentioned in HPI Physical Exam Vital Signs Date Time Temp Pulse Resp B/P (MAP) Pulse Ox O2 Delivery O2 Flow Rate FiO2 12/24/18 16:01 98.1 87 16 137/87 (104) 98 Room Air Sp02 EP Interpretation: reviewed, normal General Appearance: no apparent distress, alert, GCS 15, non-toxic Head: normocephalic, atraumatic Eyes: bilateral eye normal inspection, bilateral eye PERRL ENT: hearing grossly normal, normal pharynx, no angioedema, normal voice Neck: full range of motion, supple/symm/no masses Respiratory: chest non-tender, lungs clear, normal breath sounds, speaking full sentences Cardiovascular #1: regular rate, rhythm, no edema Cardiovascular #2: 2+ carotid (R), 2+ carotid (L), 2+ radial (R), 2+ radial (L) , 2+ dorsalis pedis (R), 2+ dorsalis pedis (L) Gastrointestinal: normal bowel sounds, non tender, soft, non-distended, no guarding, no rebound Rectal: deferred Genitourinary: normal inspection, no CVA tenderness Musculoskeletal: back normal, gait/station normal, normal range of motion, non- tender Neurologic: alert, oriented x3, responsive, motor strength/tone normal, sensory intact, speech normal Psychiatric: judgement/insight normal, memory normal, mood/affect normal, no suicidal/homicidal ideation Reflexes: 3+ bicep (R), 3+ bicep (L), 3+ tricep (R), 3+ tricep (L), 3+ knee (R) , 3+ knee (L) Lymphatic: no adenopathy Medical Decision Making Diagnostic Impression: Primary Impression: Encounter for medication refill ER Course 68 yo M presents to ED requesting medication refill hospital course: After initial history and physical, I reviewed EMR. Patient was seen here a few days ago. Was given refill Depakote, lithium, lisinopril hydrochlorothiazide. States he was locked out of his house and does not have access to these refills will provide with new prescriptions. States he is staying with a friend and has a place to stay. Safe for discharge for close outpatient follow-up. States he has a PMD Vital stable. Patient appears to be calm and cooperative during exam. Diagnosis-encounter for medication refill Stable and discharged to home with prescription for lisinopril, HCTZ, depakote, lithium. Followup with PMD. Return to ED if symptoms recur or worsen Last Vital Signs Date Time Temp Pulse Resp B/P (MAP) Pulse Ox O2 Delivery O2 Flow Rate FiO2 12/24/18 16:18 98.1 16 137/87 98 Room Air 12/24/18 16:01 87 Status: improved Disposition: HOME, SELF-CARE Condition: Stable Scripts Lisinopril* (LISINOPRIL*) 40 Mg Tablet 40 MG ORAL DAILY for 7 Days, #7 TAB Prov: Farrukh Russell MD 12/24/18 Hydrochlorothiazide* (HYDROCHLOROTHIAZIDE*) 50 Mg Tablet 50 MG ORAL DAILY for 7 Days, #7 TAB Prov: Farrukh Russell MD 12/24/18 [place] Carbonate* (LITHIUM*) 300 Mg Capsule 300 MG ORAL EVERY 8 HOURS for 7 Days, #21 CAP 0 Refills Prov: Farrukh Russell MD 12/24/18 Divalproex Sodium (Depakote) 500 Mg Tablet. 500 MG PO BID for 7 Days, #14 TAB Prov: Farrukh Russell MD 12/24/18 Referrals: Jorge Delgadillo MD (PCP) [facility] Patient Instructions: Medicine Refill at the Emergency Department Farrukh Russell MD Dec 24, 2018 19:13
== END 2018-12-24 16:20 | disposition home or self-care (01) ==
LOC: EMR 16:07
DX: I10 Essential (primary) hypertension (principal); Z76.0 Encounter for issue of repeat prescription; J44.9 Chronic obstructive pulmonary disease, unspecified; Z86.59 Personal history of other mental and behavioral disorders
CPT/HCPCS: 99282

== ENCOUNTER 2019-01-27 22:59 | Emergency (ER) | payer BC ==
[~2019-01-27] VITALS: Ht 177.8 cm; Wt 76.2 kg
--- NOTE | 2019-01-27 23:11 | NUR ---
ED Nurse Note: Patient presents broughtin by ambulance, RA 58, from home with complaints of altered level of consciousness. A neighbor called 911. Patient is alert and oriented x 1, to self. Will continue to monitor and service orders.
[2019-01-27 23:13] VITALS: BP 118/75
--- NOTE | 2019-01-27 23:24 | Emergency Room Report ---
History of Present Illness General Chief Complaint: Altered Level of Consciousness Source: Patient, Friend, EMS Present Illness HPI This is a 68-year-old male with history of bipolar. Brought in by EMS for chief plane of altered mental status. Friend/neighbor called 911 because patient was outside of his apartment and looked confused. Per EMS patient is alert oriented x2. No trauma. He is in his underwear. No nausea no vomiting. No fever chills. Patient denies any symptoms. Allergies: Coded Allergies: No Known Allergies (Unverified , 06/07/12) Patient History Past Medical History: see triage record, old chart reviewed, psych hx Past Surgical History: other Pertinent Family History: none Social History: Reports: smoking Immunizations: other Reviewed Nursing Documentation: PMH: Agreed; PSxH: Agreed Nursing Documentation-PMH Past Medical History: No History, Except For Hx Hypertension: Yes Hx COPD: Yes - emphysema History Of Psychiatric Problem: Yes - BIPOLAR Hx Neurological Problems: No Hx Seizures: Yes Review of Systems Eye: Denies: eye pain, blurred vision ENT: Denies: ear pain, nose congestion, throat swelling Respiratory: Denies: cough, shortness of breath Cardiovascular: Denies: chest pain, palpitations Gastrointestinal: Denies: abdominal pain, diarrhea, nausea, vomiting Musculoskeletal: Denies: back pain, joint pain Skin: Denies: rash Neurological: Denies: headache, numbness Endocrine: Denies: increased thirst, increased urine Hematologic/Lymphatic: Denies: easy bruising All Other Systems: negative except mentioned in HPI Physical Exam Vital Signs Date Time Temp Pulse Resp B/P (MAP) Pulse Ox O2 Delivery O2 Flow Rate FiO2 01/27/19 22:57 99.0 119 18 118/75 (89) 98 Room Air Vitals with tachycardia Sp02 EP Interpretation: reviewed, normal General Appearance: well appearing, no apparent distress, alert Head: normocephalic, atraumatic Eyes: bilateral eye PERRL, bilateral eye EOMI ENT: hearing grossly normal, normal pharynx Neck: full range of motion, supple, no meningismus Respiratory: chest non-tender, lungs clear, normal breath sounds Cardiovascular #1: regular rate, rhythm, no murmur Gastrointestinal: normal bowel sounds, non tender, no mass, no organomegaly, no bruit, non-distended Musculoskeletal: back normal, gait/station normal, normal range of motion Neurologic: alert, other - Is confused. Psychiatric: mood/affect normal Medical Decision Making Diagnostic Impression: Primary Impression: Altered level of consciousness ER Course Patient presented with altered mental status. He was here. There is no evidence of any trauma or bleed. No evidence of TIA or CVA. No evidence of any infection. He may have had a seizure and was in postictal period. After sleeping, he is alert oriented x4. He told me that he probably did not have enough of his Depakote medication. Will discharge home. Rhythm Strip Diag. Results EP Interpretation: yes Rate: 88 Rhythm: NSR, no PVC's, no ectopy CT/MRI/US Diagnostic Results CT/MRI/US Diagnostic Results : Imaging Test Ordered: CT head Impression Read by radiologist. Negative. Last Vital Signs Date Time Temp Pulse Resp B/P (MAP) Pulse Ox O2 Delivery O2 Flow Rate FiO2 01/27/19 23:13 119 18 Room Air 01/27/19 23:13 99.0 118/75 98 Status: improved Disposition: HOME, SELF-CARE Condition: Stable Patient Instructions: Altered Mental Status Additional Instructions: Follow-up with in 7 days. Take your medication. Return if worse. Ck Alatorre MD Jan 27, 2019 23:24
--- NOTE | 2019-01-27 23:25 | NUR ---
ED Nurse Note: PATIENT WENT FOR CT
--- NOTE | 2019-01-27 23:35 | NUR ---
ED Nurse Note: pATIENT RETURNED FROM CT.
[2019-01-28] MEDS ORDERED: Haloperidol 5mg/ml Inj IM ONE
[2019-01-28 00:07] LABS: APPEARANCE,URINE CLEAR; BILIRUBIN, URINE NEGATIVE (NEGATIVE); GLUCOSE, URINE (UA) NEGATIVE (NEGATIVE); KETONES,URINE 1+ (NEGATIVE); LEUKOCYTE ESTERASE ,URINE NEGATIVE (NEGATIVE); NITRITE,URINE NEGATIVE (NEGATIVE); PH,URINE 6.5 (4.5-8.0); PROTEIN,URINE 1+ (NEGATIVE); UROBILINOGEN,URINE 1 MG/DL (0.0-1.0)
[2019-01-28 00:12] LABS: BASOPHILS % (AUTO) 0.9 % (0.0-2.0); EOSINOPHILS % (AUTO) 0.1 % (0.0-3.0); HEMATOCRIT 40.5 % (42.0-52.0); HEMOGLOBIN 13.8 G/DL (14.2-18.0); MEAN CORPUSCULAR VOLUME 89 FL (80-99); MONOCYTES % (AUTO) 6.3 % (1.0-10.0); NEUTROPHILS % (AUTO) 79.7 % (45.0-75.0); PLATELET COUNT 173 K/UL (150-450); RED BLOOD COUNT 4.55 M/UL (4.70-6.10); RED CELL DISTRIBUTION WIDTH 12.8 % (11.6-14.8)
[2019-01-28 00:16] LABS: ANION GAP 9 mmol/L (5-15); BLOOD UREA NITROGEN 21 mg/dL (7-18); CARBON DIOXIDE 27 MMOL/L (21-32); CHLORIDE 102 MMOL/L (98-107); POTASSIUM 3.2 MMOL/L (3.5-5.1); SODIUM 138 MMOL/L (136-145)
[2019-01-28 00:20] LABS: COLOR,URINE YELLOW
--- NOTE | 2019-01-28 00:21 | NUR ---
ED Nurse Note: Patient did not tolerate straighter catheter well. There was little resistence however patient bled after procedure. ERMD notifiied and pressure held at site until bleeding stopped. Patient is awake and alert x2 to person and self but unable to provide accurate account of medical history. Medication administered to aid in completion of CT since patient was unable to hold still during procedure attempt earlier. Will continue to monitor.
--- NOTE | 2019-01-28 00:54 | NUR ---
ED Nurse Note: patient returned from CT.
--- NOTE | 2019-01-28 01:09 | Diagnostic Imaging Report ---
Indications: Altered mental status Technique: Spiral acquisitions obtained through the brain. Angled axial and coronal 5 x 5 mm slices were reconstructed. Total dose length product 1520 mGycm. CTDI vol(s) 62 mGy. Dose reduction achieved using automated exposure control Comparison: 03/07/2017 Findings: No acute intracranial hemorrhage or edema. No mass effect nor midline shift. Normal size ventricles. Slightly prominent extra axial CSF spaces. Normal butler-white differentiation. Intact calvarium. Visualized orbits are unremarkable. There is left maxillary sinus disease. The mastoids are clear. No significant interim change Impression: Negative for acute intracranial bleed or mass effect Mild age-related volume loss Minimal left maxillary sinus disease This agrees with the preliminary interpretation provided overnight by [facility] teleradiology service. The CT scanner at [facility] is accredited by the [employer] and the scans are performed using protocols designed to limit radiation exposure to as low as reasonably achievable to attain images of sufficient resolution adequate for diagnostic evaluation.
--- NOTE | 2019-01-28 02:00 | NUR ---
ED Nurse Note: Patient is awake alert and oriented x 4. Patient recalls that he may have had a seizure but is unsure, previousmind state consistent with post-ictal confusion. Patient is able to follow commands, will continue to monitor.
--- NOTE | 2019-01-28 03:01 | NUR ---
ED Nurse Note: PAtient sleeping soundly, no s/s of acute distress, will continue to monitor.
--- NOTE | 2019-01-28 04:02 | NUR ---
ED Nurse Note: Patient sleeping comfortably with no s/s of acute distress.
[2019-01-28] MEDS ORDERED: Albuterol ud Inhalation HHN ONE (05:00)
--- NOTE | 2019-01-28 05:00 | NUR ---
ED Nurse Note: Patient still sleeping, will continue to monitor.
--- NOTE | 2019-01-28 06:15 | NUR ---
ED Nurse Note: offered taxi voucher for patient discharge destination. [id number] [id number]
--- NOTE | 2019-01-28 07:02 | NUR ---
ED Nurse Note: Patient cleared for discharge by MAGDA. Patient is awake, alert and oriented x4, ambulatory with steady gait. Patient ID band removed. Patient IV removed. Patient verbalized understanding of discharge instructions. Patient was provided jeans to accomodate him for weather conditions. Patient was also provided a taxi voucher to his home. Patient departed with all belongings.
[2019-01-28 07:03] VITALS: BP 118/75
== END 2019-01-28 07:03 | disposition home or self-care (01) ==
LOC: EDBD 22:59 → EMR 23:07
DX: R41.82 Altered mental status, unspecified (principal); I10 Essential (primary) hypertension; F31.9 Bipolar disorder, unspecified; G40.909 Epilepsy, unspecified, not intractable, without status epilepticus; J44.9 Chronic obstructive pulmonary disease, unspecified; F17.200 Nicotine dependence, unspecified, uncomplicated
CPT/HCPCS: 36415; 70450; 80048; 80156; 80164; 80178; 80307; 81003; 85025; 96360; 96372; 99284; G0480; J1630; J7030

== ENCOUNTER 2019-03-16 12:42 | Emergency (ER) | payer BC ==
[~2019-03-16] VITALS: Ht 185.4 cm; Wt 74.8 kg
[2019-03-16 13:00] VITALS: BP 131/83
--- NOTE | 2019-03-16 13:03 | NUR ---
ED Nurse Note: pt states he fell approx 1 month ago onto back and left shoulder area. relates recently that he has been having decreased range of motion to shoulder and increased pain. denies numbness or tingling to left fingertips. Addendum: 03/16/19 at 1306 by [facility] Nurse Note: pt relates pain to right shoulder approx x 2 months. denies numbness and tingling to right fingertips. pt does state that he does have decreased ROM to right arm. pt relates he fell at home 2 months ago.
--- NOTE | 2019-03-16 13:08 | NUR ---
ED Nurse Note: pt david by
--- NOTE | 2019-03-16 13:13 | Emergency Room Report ---
History of Present Illness General Chief Complaint: Pain Source: Patient Present Illness HPI 68-year-old male with history of bipolar disorder currently on lithium noncompliant, here complaining of 2 months of right shoulder pain rating at 5 out of 10 with tingling and numbness. Reports that he might of slept wrongfully on it does not recall falling however he might have. Patient has full range of motion with minor symptoms of impingement. Denies any new fall or injury. Denies chest pain, shortness of breath, palpitation, no other associated symptoms. Has not taken medication for symptom relief. Reports that the pains around the shoulder And radiating to all fingers. His right hand is his dominant side. Allergies: Coded Allergies: No Known Allergies (Unverified , 06/07/12) Patient History Past Medical History: see triage record Past Surgical History: unable to obtain Pertinent Family History: none Immunizations: UTD Reviewed Nursing Documentation: PMH: Agreed; PSxH: Agreed Nursing Documentation-PMH Hx Cardiac Problems: Yes - HIV Hx Hypertension: Yes Hx COPD: Yes Hx Neurological Problems: Yes - Bipolar disorder Hx Seizures: Yes Review of Systems All Other Systems: negative except mentioned in HPI Physical Exam Vital Signs Date Time Temp Pulse Resp B/P (MAP) Pulse Ox O2 Delivery O2 Flow Rate FiO2 03/16/19 12:53 98.2 71 18 131/83 (99) 93 Room Air Sp02 EP Interpretation: reviewed, normal General Appearance: no apparent distress, alert, GCS 15, non-toxic Head: normocephalic, atraumatic Eyes: bilateral eye normal inspection, bilateral eye PERRL ENT: hearing grossly normal, normal pharynx, no angioedema, normal voice Neck: full range of motion, supple/symm/no masses Respiratory: chest non-tender, lungs clear, normal breath sounds, no rhonchi, no retraction, no wheezing, speaking full sentences Cardiovascular #1: regular rate, rhythm, no edema, no murmur, normal capillary refill Cardiovascular #2: 2+ radial (R), 2+ radial (L) Gastrointestinal: normal bowel sounds, non tender, soft, non-distended, no guarding, no rebound Rectal: deferred Genitourinary: no CVA tenderness Musculoskeletal: back normal, decreased range of motion, digits/nails normal Neurologic: alert, motor strength/tone normal, oriented x3, sensory intact, responsive, speech normal Psychiatric: judgement/insight normal, memory normal, mood/affect normal, no suicidal/homicidal ideation Skin: no rash Lymphatic: no adenopathy Medical Decision Making PA Attestation All my diagnosis and treatment plans were reviewed ad discussed with my supervising physician Dr. Russell Diagnostic Impression: Primary Impression: Tendonitis of shoulder, right Additional Impression: Arthritis ER Course 68-year-old male with history of bipolar disorder currently on lithium noncompliant, here complaining of 2 months of right shoulder pain rating at 5 out of 10 with tingling and numbness. Reports that he might of slept wrongfully on it does not recall falling however he might have. Patient has full range of motion with minor symptoms of impingement. Denies any new fall or injury. Denies chest pain, shortness of breath, palpitation, no other associated symptoms. Has not taken medication for symptom relief. Reports that the pains around the shoulder And radiating to all fingers. His right hand is his dominant side. Ddx considered but are not limited to : Shoulder sprain versus strain versus tendinitis versus rotator cuff injury Vital signs: are WNL, pt. is afebrile H&PE are most consistent with: Tendinitis of right shoulder, arthritis ORDERS: No x-ray necessary as patient has been experiencing for 2 months, no fall or injury noted also explained to patient that due to the impingement sign patient needs an MRI to be requested by primary care physician. Also physical therapy needed, ibuprofen, Robaxin ED INTERVENTIONS: None DISCHARGE: At this time pt. is stable for d/c to home. Will provide printed patient care instructions, and any necessary prescriptions. Care plan and follow up instructions have been discussed with the patient prior to discharge. Last Vital Signs Date Time Temp Pulse Resp B/P (MAP) Pulse Ox O2 Delivery O2 Flow Rate FiO2 03/16/19 12:53 98.2 71 18 131/83 (99) 93 Room Air Disposition: HOME, SELF-CARE Condition: Stable Scripts Lidocaine Patch* (Lidoderm Patch*) 1 Each Adh..patch 1 PATCH TOPIC DAILY, #7 PATCH 0 Refills Patch(es) may remain in place for up to 12 hours in any 24-hour period. Prov: Denise Davila 03/16/19 Methocarbamol* (ROBAXIN-500*) 500 Mg Tablet 500 MG ORAL TID PRN for For Pain, #15 TAB 0 Refills Prov: Denise Davila 03/16/19 Ibuprofen* (MOTRIN*) 600 Mg Tablet 600 MG ORAL Q8H PRN for For Pain, #30 TAB 0 Refills Prov: Denise Davila 03/16/19 Patient Instructions: Arthritis, [id number], Bicipital Tendonitis Additional Instructions: Take medication as directed, follow-up with your primary care provider, physical therapy may be beneficial. At this time x-ray will not be beneficial however you may eventually need MRI of right shoulder to be requested by your primary care physician. Denise Davila Mar 16, 2019 13:13
[2019-03-16] MEDS ORDERED: IBUPROFEN600 MG ORAL (13:16)
[2019-03-16] MEDS ORDERED: ROBAXIN-500MG ORAL (13:16)
[2019-03-16] MEDS ORDERED: LIDODERM700 M1 TOPIC (13:16)
--- NOTE | 2019-03-16 13:30 | NUR ---
ED Nurse Note: Pt cleared by health care Provider for discharge. DC instructions/prescription was given and explained to pt and verbalized understanding of teachings. All medical devices such as ID band removed. Pt is AAO x4, ambulatory and left with all personal belongings.
== END 2019-03-16 13:52 | disposition home or self-care (01) ==
LOC: EMR 13:45
DX: M77.9 Enthesopathy, unspecified (principal); M19.90 Unspecified osteoarthritis, unspecified site; I10 Essential (primary) hypertension; J44.9 Chronic obstructive pulmonary disease, unspecified; F31.9 Bipolar disorder, unspecified; G40.909 Epilepsy, unspecified, not intractable, without status epilepticus; B20 Human immunodeficiency virus [HIV] disease
CPT/HCPCS: 99282